=== PATIENT | female | born 1995 | race Caucasian/White ===

== ENCOUNTER 2019-05-18 21:37 | Emergency (ER) | payer OTHER, SELFPAY ==
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
[2019-05-18 21:58] VITALS: BP 146/97; PULSE 74; RESP 17; TEMP 36.6; O2SAT 100; BMI 39.8
[2019-05-18 23:12] VITALS: BP 150/94; PULSE 81; RESP 17; O2SAT 98
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
[2019-05-18 23:38] VITALS: BP 166/96; PULSE 84; RESP 18; O2SAT 100
== END 2019-05-18 23:39 | disposition home or self-care (01) ==
LOC: ER 05-19 00:39
PROVIDERS: Emergency Provider Nurse Practitioner Family; Family Provider Family Medicine; PCP Family Medicine
DX: S43.401A Unspecified sprain of right shoulder joint, initial encounter (principal); Y09 Assault by unspecified means; Y92.238 Other place in hospital as the place of occurrence of the external cause; Y99.0 Civilian activity done for income or pay
CPT/HCPCS: 73030; 99281; 99283

== ENCOUNTER 2019-11-07 23:31 | Emergency (ER) | payer OTHER, SELFPAY ==
--- NOTE | 2019-11-07 23:33 | XR_ITS ---
WS: [id number] RIGHT SHOULDER: 3 VIEW(S) TECHNIQUE: Internal and external rotation with Y view. HISTORY: fall COMPARISON: None available. No fracture or dislocation or soft tissue abnormality. Glenohumeral and AC joints are unremarkable. XR/XR shoulder RT min 2V* [id number] IMPRESSION: Normal RIGHT shoulder.
--- NOTE | 2019-11-07 23:33 | XR_ITS ---
WS: [id number] RIGHT ELBOW: 3 VIEW(S) TECHNIQUE: AP, oblique and lateral. HISTORY: fall COMPARISON: None available. No acute fractures or dislocation. Small osteophyte from the olecranon. No joint effusion. No soft tissue abnormality. XR/XR elbow RT min 3V* [id number] IMPRESSION: Normal RIGHT elbow.
[2019-11-08 00:12] VITALS: BP 136/81; PULSE 86; RESP 16; O2SAT 98; BMI 40.7
--- NOTE | 2019-11-08 00:24 | W.ED.FALL ---
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 and she fell on the floor striking her right elbow and straining her right shoulder complains about pain to her right shoulder presently MD complaint: fall Onset (ago): minute(s) Fall from: standing Fall witnessed: yes, by bystander Place fall occurred: work Loss of consciousness: None Symptoms prior to fall: none Context: tripped/slipped Location of injury - extremities: Right: shoulder and elbow Severity: mild Severity scale (1-10): 4 Quality: aching Associated symptoms-after fall: Reports no associated symptoms; Denies abdominal pain, chest pain or headache(s) Review of Systems Const: Denies: fever(s), chills or body aches Eyes: Denies: change in vision or blurry vision ENMT: Denies: throat pain or nasal congestion Card: Denies: chest pain or dyspnea on exertion Resp: Denies: dyspnea, productive cough or non-productive cough GI: Denies: abdominal pain, nausea or vomiting Musc: Reports: joint pain (Right shoulder and right elbow); Denies: extremity pain Skin/Breast: Denies: rash Neuro: Denies: headache(s) Psych: Denies: anxiety or depression Jeffery/Lymph: Denies: easy bruising PFSH ED PFSH: Family History Father Diabetes Social History Smoking and tobacco status: never smoked Alcohol intake: current Alcohol intake frequency: holidays/special occasions only 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[employer] [place] Physical Exam Const: COMMON NORMALS: no acute distress, average body habitus and patient oriented x3 HENMT: COMMON NORMALS: normocephalic HEAD & SCALP: normal to inspection and normocephalic FACE & SINUS: normal facial exam Eye: COMMON NORMALS: conjunctivae normal GENERAL EYE: appearance normal, both eyes and all related structures CONJUNCTIVA: Yes conjunctivae normal Neck/C-Spine: COMMON NORMALS: no JVD Chest: COMMONS NORMALS: normal inspection of the chest Resp: COMMON NORMALS: normal respiratory effort Cardio: COMMON NORMALS: no JVD GI: COMMON NORMALS: Normal to inspection, nondistended, normoactive bowel sounds present Extremity: COMMON NORMALS: normal to inspection and full ROM RIGHT UPPER EXTREMITY: Yes shoulder joint (Pain with range of motion does have full range of motion though no swelling noted distal neurovascular intact) and Yes elbow joint (Mild tenderness palpation no swelling bruising noted has full range of motion) Neuro: COMMON NORMALS: patient oriented x3 Course Vital Signs: Vital signs: Vital Signs Pulse Rate 86 11/08/19 00:12 Respiratory Rate 16 11/08/19 00:12 Blood Pressure 136/81 11/08/19 00:12 Pulse Oximetry 98 11/08/19 00:12 Discharge Plan Discharge Clinical Impression: Right shoulder strain Qualifiers: Encounter type: initial encounter Qualified Code(s): S46.911A - Strain of unspecified muscle, fascia and tendon at shoulder and upper arm level, right arm, initial encounter Condition: Stable Prescriptions: No Action NuvaRing 0.12-0.015 mg/24 hr Ring VAGINAL RF: 0 Tremfya 100 mg/mL Auto-Injector 100 mg SUBCUT RF: 0 ibuprofen 800 mg tablet 800 mg PO Q8H PRN (Reason: pain) Qty: 30 RF: 0 Discharge Orders: Discharge Order (Routine); Ordered 11/08/19 Ordered By: Alonso Del Rio Referrals: Christina Tirado MD [Primary Care Provider] - Discharge Diet: Usual diet Discharge Activity: Limit activity as instructed Patient Instructions: Rotator Cuff Injury (ED) Activity Restrictions/Additional Instructions: ice, rest , off rest of shift. follow up at [facility] work Coding Level of Care Code ED Dental Office Manager for Chapis Kennedy
== END 2019-11-08 00:35 | disposition home or self-care (01) ==
PROVIDERS: Emergency Provider Nurse Practitioner Family; PCP Family Medicine
DX: S46.911A Strain of unspecified muscle, fascia and tendon at shoulder and upper arm level, right arm, initial encounter (principal); W01.198A Fall on same level from slipping, tripping and stumbling with subsequent striking against other object, initial encounter
CPT/HCPCS: 12345; 73030; 73080; 99281; 99283

== ENCOUNTER 2019-11-21 09:25 | Emergency (ER) | payer OTHER, SELFPAY ==
[2019-11-21] VITALS (7 sets, daily range): BP systolic 128–171; BP diastolic 84–110; PULSE 88–118; RESP 16–26; TEMP 37.1–37.3; O2SAT 96–99; BMI 41.6
--- NOTE | 2019-11-21 09:55 | W.ED.SOB ---
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 She is on a biological for her psoriasis which leaves her in suppressed category. Yesterday she had symptoms that were suggestive of COVID she went to [facility] local doctors office and was tested. It will be several days before that test gets back. She started having a fever this morning she is tachycardic and short of breath. Her oxygen sats however are good. MD elicited complaint: shortness of breath and cough Onset (ago): day(s) Context: recent illness Timing: constant Severity: moderate Exacerbating factors: nothing Relieving factors: nothing Associated symptoms: Reports chest congestion, cough, dizziness, lightheadedness and nausea; Deny fever(s), orthopnea, palpitations, syncope or vomiting Treatment prior to arrival: none Review of Systems Const: Denies: fever(s), chills, body aches, change in appetite, fatigue or malaise ENMT: Denies: throat pain, ear or mastoid pain, nasal discharge or nasal congestion Card: Reports: lightheadedness; Denies: palpitations, syncope or orthopnea Resp: Reports: chest congestion GI: Reports: nausea; Denies: vomiting : Denies: flank pain, difficulty voiding, dysuria, urinary frequency or urinary urgency Skin/Breast: Denies: rash or pruritus Neuro: Reports: dizziness PFSH ED PFSH: Family History Father Diabetes Social History Smoking and tobacco status: never smoked Alcohol intake: current Alcohol intake frequency: holidays/special occasions only 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 Reproductive History: Date of last menstrual period: 11/14/19 Physical Exam Const: COMMON NORMALS: no acute distress GENERAL APPEARANCE: cooperative and comfortable ORIENTATION/CONSCIOUSNESS: Yes awake, Yes oriented to person, Yes oriented to place and Yes oriented to time HENMT: COMMON NORMALS: normocephalic and atraumatic HEAD & SCALP: normocephalic and atraumatic Eye: COMMON NORMALS: Equal, round and reactive pupils present, EOMs intact bilaterally, conjunctivae normal and no scleral icterus CONJUNCTIVA: Yes conjunctivae normal PUPIL: Yes Equal, round and reactive pupils present Neck/C-Spine: COMMON NORMALS: full ROM, no lymphadenopathy, supple and no JVD Lymph: LYMPHATIC: no lymphadenopathy noted and no lymphedema noted Resp: COMMON NORMALS: normal respiratory effort, No retractions and No use of accessory muscles AUSCULTATION: wheezes (Mild) expiratory wheezes and throughout Cardio: COMMON NORMALS: no JVD, regular rate, regular rhythm and No murmurs present (Cardio) RATE: regular rate RHYTHM: regular rhythm GI: COMMON NORMALS: Soft to palpation and No hepatosplenomegaly present AUSCULTATION: Yes normoactive bowel sounds PALPATION: Yes Soft to palpation, No Tenderness to palpation present (GI), No Guarding due to palpation present (GI) and Yes No hepatosplenomegaly present Extremity: COMMON NORMALS: normal to inspection, capillary refill normal, no clubbing, cyanosis or edema, no calf tenderness and no pedal edema Neuro: SENSORIUM/ORIENTATION: Yes oriented to person, Yes oriented to place and Yes oriented to time Skin: COMMON NORMALS: no rashes or lesions noted GENERAL SKIN EXAM: no rashes or lesions noted Course Vital Signs: Vital signs: Vital Signs Temperature 98.8 F 11/21/19 14:58 Pulse Rate 100 11/21/19 14:58 Respiratory Rate 18 11/21/19 14:58 Blood Pressure 128/88 11/21/19 14:58 Pulse Oximetry 96 11/21/19 14:58 MDM - SOB/Dyspnea MDM Narrative: Medical decision making narrative: Code engine is negative she has a outside swab pending it is recommended she remain in quarantine until the time she reported temp 103 at home her temps not been that high here sats have been good on room air will discharge home with albuterol she has any worsening problems return to the emergency room Lab Data: Labs: Lab Results 11/21/19 11/21/19 11/21/19 Range/Units 11:08 11:08 11:08 WBC 10.3 H (4.0-10.0) 10^3/ uL RBC 5.29 (4.1-5.3) 10^6/u L Hgb 12.8 (11.5-15.3) g/dL Hct 41.6 (37.0-47.0) % MCV 78.6 L (81-99) fL MCH 24.2 L (28.0-34.0) pg MCHC 30.8 (30.0-36.0) g/dL RDW 13.0 (12.1-15.1) % Plt Count 342 (130-400) 10^3/c mm MPV 10.5 H (7.4-10.4) fL Neut % (Auto) 80.5 % Lymph % (Auto) 9.9 % [place] % (Auto) 5.1 % Eos % (Auto) 3.5 % Baso % (Auto) 0.6 % Neut # (Auto) 8.29 H (1.8-7.7) 10^3/u L Lymph # (Auto) 1.0 (0.8-4.8) 10^3/u L [place] # (Auto) 0.5 (0.2-0.9) 10^3/u L Eos # (Auto) 0.4 (0.0-0.8) 10^3/u L Baso # (Auto) 0.1 (0.0-0.1) 10^3/u L Nucleated RBC % (a uto) 0 % Nucleated RBCs # 0.0 /100WBC Fibrinogen 490 (174-498) mg/dL D-Dimer 0.31 (0-0.59) ug/mIFE U Sodium 134 L (136-145) mmol/L Potassium 3.9 (3.5-5.1) mmol/L Chloride 103 (98-107) mmol/L Carbon Dioxide 21 L (22-29) mmol/L Anion Gap 13.9 (5-19) BUN 9 (6-20) mg/dL Creatinine 0.7 (0.5-0.9) mg/dL GFR Calculation 102.0 (90-130) mL/min Glucose 106 (65-115) mg/dL Calculated Osmolal ity 274 L (285-295) mOsm/k g Lactic Acid (0.5-2.2) mmol/L Calcium 8.7 (8.5-10.5) mg/dL Ferritin 24 (15-150) ng/mL Total Bilirubin 0.5 (0.15-1.2) mg/dL AST 17 (0-32) U/L ALT 21 (0-33) U/L Alkaline Phosphata se 108 H (35-105) IU/L Lactate Dehydrogen ase 200 (135-214) U/L C-Reactive Protein 21.1 H (0.0-4.9) mg/L Total Protein 7.7 (6.6-8.7) g/dL Albumin 4.2 (3.5-5.2) g/dL Globulin 3.5 (1.3-4.6) g/dL Procalcitonin 0.11 (0-0.5) ng/mL Influenza Type A A g (Negative) Influenza Type B A g (Negative) SARS-CoV-2 Ag (Rap id) (Negative) 11/21/19 11/21/19 11/21/19 Range/Units 11:08 11:12 11:12 WBC (4.0-10.0) 10^3/ uL RBC (4.1-5.3) 10^6/u L Hgb (11.5-15.3) g/dL Hct (37.0-47.0) % MCV (81-99) fL MCH (28.0-34.0) pg MCHC (30.0-36.0) g/dL RDW (12.1-15.1) % Plt Count (130-400) 10^3/c mm MPV (7.4-10.4) fL Neut % (Auto) % Lymph % (Auto) % [place] % (Auto) % Eos % (Auto) % Baso % (Auto) % Neut # (Auto) (1.8-7.7) 10^3/u L Lymph # (Auto) (0.8-4.8) 10^3/u L [place] # (Auto) (0.2-0.9) 10^3/u L Eos # (Auto) (0.0-0.8) 10^3/u L Baso # (Auto) (0.0-0.1) 10^3/u L Nucleated RBC % (a uto) % Nucleated RBCs # /100WBC Fibrinogen (174-498) mg/dL D-Dimer (0-0.59) ug/mIFE U Sodium (136-145) mmol/L Potassium (3.5-5.1) mmol/L Chloride (98-107) mmol/L Carbon Dioxide (22-29) mmol/L Anion Gap (5-19) BUN (6-20) mg/dL Creatinine (0.5-0.9) mg/dL GFR Calculation (90-130) mL/min Glucose (65-115) mg/dL Calculated Osmolal ity (285-295) mOsm/k g Lactic Acid 0.8 (0.5-2.2) mmol/L Calcium (8.5-10.5) mg/dL Ferritin (15-150) ng/mL Total Bilirubin (0.15-1.2) mg/dL AST (0-32) U/L ALT (0-33) U/L Alkaline Phosphata se (35-105) IU/L Lactate Dehydrogen ase (135-214) U/L C-Reactive Protein (0.0-4.9) mg/L Total Protein (6.6-8.7) g/dL Albumin (3.5-5.2) g/dL Globulin (1.3-4.6) g/dL Procalcitonin (0-0.5) ng/mL Influenza Type A A g Negative (Negative) Influenza Type B A g Negative (Negative) SARS-CoV-2 Ag (Rap id) Negative (Negative) Discharge Plan Discharge Patient Disposition: Home Clinical Impression: URI (upper respiratory infection), Suspected 2019-nCoV infection Condition: Stable Prescriptions: New albuterol sulfate 90 mcg/actuation HFA aerosol inhaler 2 inh INHALATION Q4H PRN (Reason: shortness of breath or wheezing) Qty: 18 RF: 0 No Action Tremfya 100 mg/mL Auto-Injector 100 mg SUBCUT Q60D RF: 0 ibuprofen 800 mg tablet 800 mg PO Q8H PRN (Reason: pain) Qty: 30 RF: 0 guaifenesin 200 mg/5 mL Liquid 1,600 mg PO Q6H PRN (Reason: Congestion) RF: 0 Discharge Orders: Discharge Order (Routine); Ordered 11/21/19 Ordered By: Sg Morataya Referrals: Christina Tirado MD [Primary Care Provider] - Discharge Diet: Usual diet Discharge Activity: Limit activity as instructed Activity Restrictions/Additional Instructions: Self quarantine until the results from your doctor's office nasal swab on COVID-19 never resulted. Tylenol or ibuprofen as needed for fever. Albuterol as needed for cough and shortness of breath. If symptoms worsen return to the emergency room Discharge Date/Time: 11/21/19 15:00 Coding Level of Care Code ED Electroneurodiagnostic Technician for Chapis Kennedy
--- NOTE | 2019-11-21 09:57 | XR_ITS ---
WS: [id number] PORTABLE CHEST HISTORY: Cough COMPARISON: None available. Lungs are clear and well expanded. No pleural effusion or pneumothorax. Cardiac size: Normal. Mediastinum/Aorta: Normal mediastinum. No osseous abnormality seen. XR/XR chest 1V portable [id number] IMPRESSION: Unremarkable portable chest.
--- NOTE | 2019-11-21 09:57 | ECG_ITS ---
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 Measurements Intervals [place] Rate: 91 P: 22 MA: 138 QRS: 49 QRSD: 93 T: 45 QT: 343 QTc: 423 Interpretive Statements SINUS RHYTHM No previous ECG available for comparison Electronically Signed On 11-21-2019 12:14:51 CDT by Travis Vaca M.D. [id number]
[2019-11-21] MEDS: sodium chloride 0.9% 500 ML 999 ML IV (11:16)
[2019-11-21 11:20] LABS: Basophils # 0.1 10^3/uL (0.0-0.1); Basophils % 0.6 %; Eosinophils # 0.4 10^3/uL (0.0-0.8); Eosinophils % 3.5 %; Hematocrit 41.6 % (37.0-47.0); Hemoglobin 12.8 g/dL (11.5-15.3); Lymphocytes % 9.9 %; Mean Corpuscular HGB Conc 30.8 g/dL (30.0-36.0); Mean Corpuscular Hemoglobin 24.2 pg (28.0-34.0); Mean Corpuscular Volume 78.6 fL (81-99); Mean Platelet Volume 10.5 fL (7.4-10.4); Monocytes # 0.5 10^3/uL (0.2-0.9); Monocytes % 5.1 %; Neutrophils # 8.29 10^3/uL (1.8-7.7); Neutrophils % 80.5 %; Nucleated Red Blood Cells % 0 %; Platelet Count 342 10^3/cmm (130-400); Red Blood Count 5.29 10^6/uL (4.1-5.3); White Blood Count 10.3 10^3/uL (4.0-10.0)
[2019-11-21 11:35] LABS: Fibrinogen 490 mg/dL (174-498)
[2019-11-21 11:39] LABS: D Dimer 0.31 ug/mIFEU (0-0.59); Lactic Sepsis W/Reflex 0.8 mmol/L (0.5-2.2)
[2019-11-21 11:49] LABS: Procalcitonin 0.11 ng/mL (0-0.5)
[2019-11-21 11:51] LABS: Influenza A by IFA Negative (Negative); Influenza B by IFA Negative (Negative); SARS Covid-2 Antigen Negative (Negative)
[2019-11-21 12:00] LABS: Alanine Aminotransferase 21 U/L (0-33); Albumin Level 4.2 g/dL (3.5-5.2); Alkaline Phosphatase 108 IU/L (35-105); Anion Gap 13.9 (5-19); Aspartate Amino Transferase 17 U/L (0-32); Blood Urea Nitrogen 9 mg/dL (6-20); C Reactive Protein 21.1 mg/L (0.0-4.9); Calcium 8.7 mg/dL (8.5-10.5); Carbon Dioxide 21 mmol/L (22-29); Chloride 103 mmol/L (98-107); Ferritin 24 ng/mL (15-150); Globulin 3.5 g/dL (1.3-4.6); Glucose 106 mg/dL (65-115); Lactate Dehydrogenase 200 U/L (135-214); Osmolality Calculated 274 mOsm/kg (285-295); Potassium 3.9 mmol/L (3.5-5.1); Sodium 134 mmol/L (136-145); Total Bilirubin 0.5 mg/dL (0.15-1.2); Total Protein 7.7 g/dL (6.6-8.7)
--- NOTE | 2019-11-21 12:16 | CT_ITS ---
WS: [id number] CT CHEST ANGIOGRAPHY WITH REFORMATS HISTORY: tachycardic and dyspnea TECHNIQUE: Contiguous axial images are obtained through the chest during arterial injection of intrav enous contrast. Images are reconstructed to evaluate the pulmonary arteries. MIP imaging also reviewe d. All CT scans at [facility] use at least one of these dose optimization techniques: aut omated exposure control; mA and/or kV adjustment per patient size (includes targeted exams where dose is matched to clinical indication); or iterative reconstruction. CONTRAST: Omnipaque 350; 95 mL IV. DLP: 574.65 mGy.cm COMPARISON: None available. Very good opacification of the pulmonary arteries. No pulmonary embolism. Pulmonary artery size is pr ominent 2.6 cm. No dissection or aneurysm. The caliber of the thoracic aorta and the upper abdominal aorta is small. Lungs are clear. No pericardial or pleural effusion. Mild LEFT ventricular hypertrophy. No RIGHT hear t strain. 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 The entire spleen is not imaged but does appear elongated measuring greater than 13 cm in length. Notified Sg Morataya DO at 11/21/2019 1:[address]/CT angio chest PE protcl [id number] IMPRESSION: 1. No pulmonary embolism. 2. Small caliber thoracic and abdominal aorta of uncertain etiology. 3. 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 4. Mild LEFT ventricular hypertrophy. 5. Splenomegaly.
[2019-11-21] MEDS: iohexol 350 mg/mL 100 mL Btl IV (13:26)
[2020-01-06 01:52] LABS: Hepatitis B Surface AB 3.5 (0-8.5); Hepatitis B Surface Antigen Non-Reactive (Nonreactive); Hepatitis C Virus Antibody Non-Reactive (Nonreactive)
[2020-01-06 01:58] LABS: HIV 1 & 2 Antibody Non-Reactive (Non-Reactiv); HIV 1 & 2 Antigen Non-Reactive (Non-Reactiv)
== END 2019-11-21 15:00 | disposition home or self-care (01) ==
PROVIDERS: Emergency Provider Family Medicine; PCP Family Medicine
DX: J06.9 Acute upper respiratory infection, unspecified (principal)
CPT/HCPCS: 12345; 71045; 71275; 80053; 82728; 83605; 83615; 84145; 85025; 85378; 85384; 86140; 87040; 87070; 87205; 87426; 87804; 93005; 93010; 99284; J7040; Q9967

== ENCOUNTER 2020-01-06 06:00 | Outpatient (CLI) | payer OTHER, SELFPAY | END 2020-01-06 06:01 | disposition home or self-care (01) | LOC: LAB 01-18 10:48 | PROVIDERS: PCP Family Medicine; Visit Provider Family Medicine | DX: Z01.89 Encounter for other specified special examinations (principal) | CPT/HCPCS: 86706; 86803; 87340; 87806 ==

== ENCOUNTER 2020-01-09 10:53 | Outpatient (CLI) | payer OTHER, SELFPAY ==
--- NOTE | 2020-01-09 11:00 | USCV_ITS ---
Laya Cortez Age: 24 Gender: F : 1995 Exam Date: 01/09/2020 11:18 Ordering Phys: Cassie Oliveros MD ([email or web address]) Technologist: Sydney Chang Exam Location: [facility] [place] Indication: PULMONARY STENOSIS BP: 118 / 69 HR: 82 Rhythm: Sinus Technical Quality: Adequate MEASUREMENTS (Male / Female) Normal Values 2D ECHO LV Diastolic Diameter PLAX 2.9 cm 4.2 - 5.9 / 3.9 - 5.3 cm LV Systolic Diameter PLAX 1.8 cm LV Chamber Size 2.4 cm IVS Diastolic Thickness 1.3 cm 0.6 - 1.0 / 0.6 - 0.9 cm IVS Systolic Thickness 1.5 cm LVPW Diastolic Thickness 1.6 cm 0.6 - 1.0 / 0.6 - 0.9 cm LVPW Systolic Thickness 1.9 cm RV Chamber Size 1.8 cm LVOT Diameter 2.0 cm LV Ejection Fraction 2D Teich 70.4 % LV Ejection Fraction MOD 2C 63.2 % LV Ejection Fraction 2C AL 63.9 % LA Diameter 3.6 cm LA Width 2.8 cm LA Height 2.9 cm RA Width 2.2 cm RA Height 2.9 cm Aorta at Sinotubular Diameter 2.2 cm M-MODE LV Diastolic Diameter MM 2.7 cm 4.2 - 5.9 / 3.9 - 5.3 cm LV Systolic Diameter MM 1.4 cm LV Ejection Fraction MM Teich 81.7 % IVS Diastolic Thickness MM 0.7 cm 0.6 - 1.0 / 0.6 - 0.9 cm IVS Systolic Thickness MM 1.1 cm LVPW Diastolic Thickness MM 1.3 cm 0.6 - 1.0 / 0.6 - 0.9 cm LVPW Systolic Thickness MM 1.2 cm Aortic Annulus Diameter 2.9 cm LA Ao Ratio MM 1.3 MV E Point Septal Separation 0.2 cm DOPPLER AV Peak Velocity 123.0 cm/s LVOT Peak Velocity 97.0 cm/s AV Area Cont Eq vti 2.8 cm squared AV Area Cont Eq pk 2.5 cm squared MV Area PHT 4.8 cm squared Mitral E to A Ratio 1.3 MV E' Velocity 84.0 cm/s Mitral E to MV E' Ratio 5.3 Mitral E to LV E' Lateral Ratio 5.5 Mitral E to LV E' Septal Ratio 5.0 TR Peak Velocity 196.0 cm/s TR Peak Gradient 15.3 mmHg TV Peak E Velocity 71.0 cm/s Right Atrial Pressure 3.0 mmHg Pulmonary Artery Systolic Pressu 18.4 mmHg PV Peak Velocity 119.0 cm/s QpQs Shunt Ratio 2.7 RV Acceleration Time 0.1 s RV Ejection Time 0.5 s RV AcT/ET 0.2 FINDINGS Left Ventricle Normal left ventricular size, systolic function and wall thickness, with no regional wall motion abnormalities. Left ventricular ejection fraction is estimated at 65 %. Normal diastolic function. Right Ventricle Normal right ventricular size and systolic function, RVSP 18.4 mmHg. Right Atrium Normal right atrial size. Left Atrium Normal left atrial size. Mitral Valve Structurally normal mitral valve. No mitral valve stenosis. No mitral valve regurgitation. Aortic Valve Structurally normal trileaflet aortic valve. No aortic valve stenosis. No aortic valve regurgitation. Tricuspid Valve Structurally normal tricuspid valve. No tricuspid valve stenosis. No significant tricuspid valve regurgitation. Pulmonic Valve Pulmonic valve not well visualized. No pulmonary valve stenosis. Trace pulmonary valve regurgitation. Pericardium No pericardial effusion. Aorta Small sized aortic root (26 mm) and proximal ascending aorta (24 mm). Indexed aortic root (Sov) is 1.3 cm/m2 (1.6-2.0) and proximal ascending aorta 1.2 cm2/m2 (1.3-1.9). Z score of sinus of valsalva -1.92, ST junction of -1.10 and ascending aorta - 0.71. CONCLUSIONS 1. Normal left ventricular size, systolic function and wall thickness, with no regional wall motion abnormalities. Left ventricular ejection fraction is estimated at 65 %. Normal diastolic function. 2. Normal right ventricular size and systolic function, RVSP 18.4 mmHg. 3. No significant valvular abnormality. 4. No prior similar studies to compare. Cassie Oliveros MD (Electronically Signed) Final Date: 09 January 2020 17:12 Amended: 14 January 2020 10:36 C
== END 2020-01-09 10:54 | disposition home or self-care (01) ==
LOC: US 10:54
PROVIDERS: PCP Family Medicine; Visit Provider Internal Medicine Cardiovascular Disease
DX: R06.02 Shortness of breath (principal); I37.0 Nonrheumatic pulmonary valve stenosis
CPT/HCPCS: 93306

== ENCOUNTER 2020-01-25 20:15 | Emergency (ER) | payer OTHER, SELFPAY ==
--- NOTE | 2020-01-25 20:22 | XRR_ITS ---
PROCEDURE INFORMATION: Exam: XR Chest, 1 View Exam date and time: 01/25/2020 8:23 PM Age: 24 years old Clinical indication: Other: Weakness TECHNIQUE: Imaging protocol: XR of the chest Views: 1 view. COMPARISON: CR XR chest 1V portable [id number] 11/21/2019 10:19 AM FINDINGS: Lungs: Unremarkable. No consolidation. Pleural space: Unremarkable. No pleural effusion. No pneumothorax. Heart/Mediastinum: Unremarkable. No cardiomegaly. Bones/joints: Unremarkable. XR/XR chest 1V portable [id number] IMPRESSION: No acute findings.
--- NOTE | 2020-01-25 20:22 | ECG_ITS ---
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 Measurements Intervals [place] Rate: 61 P: 57 [place]: 161 QRS: 56 QRSD: 92 T: 47 QT: 398 QTc: 402 Interpretive Statements SINUS RHYTHM LOW QRS VOLTAGE IN PRECORDIAL LEADS [QRS DEFLECTION < 1.0 mV IN CHEST LEADS] Compared to ECG 11/21/2019 11:36:51 Low QRS voltage now present Electronically Signed On 01-26-2020 18:00:49 CDT by Cassie Oliveros M.D. [id number]
[2020-01-25 20:24] VITALS: BP 112/80; PULSE 65; RESP 17; TEMP 36.8; O2SAT 99; BMI 41.6
[2020-01-25 20:53] LABS: Basophils # 0.1 10^3/uL (0.0-0.1); Basophils % 0.8 %; Eosinophils # 0.3 10^3/uL (0.0-0.8); Eosinophils % 2.8 %; Hematocrit 41.6 % (37.0-47.0); Hemoglobin 13.1 g/dL (11.5-15.3); Lymphocytes # 2.4 10^3/uL (0.8-4.8); Lymphocytes % 26.1 %; Mean Corpuscular HGB Conc 31.5 g/dL (30.0-36.0); Mean Corpuscular Hemoglobin 24.3 pg (28.0-34.0); Mean Corpuscular Volume 77.2 fL (81-99); Mean Platelet Volume 9.9 fL (7.4-10.4); Monocytes # 0.5 10^3/uL (0.2-0.9); Monocytes % 5.3 %; Neutrophils # 5.92 10^3/uL (1.8-7.7); Neutrophils % 64.8 %; Nucleated Red Blood Cells % 0 %; Platelet Count 422 10^3/cmm (130-400); Red Blood Count 5.39 10^6/uL (4.1-5.3); Red Cell Distribution Width 13.2 % (12.1-15.1); White Blood Count 9.1 10^3/uL (4.0-10.0)
[2020-01-25 21:11] LABS: Alanine Aminotransferase 12 U/L (0-33); Albumin Level 4.3 g/dL (3.5-5.2); Alkaline Phosphatase 106 IU/L (35-105); Anion Gap 14.3 (5-19); Aspartate Amino Transferase 13 U/L (0-32); Blood Urea Nitrogen 8 mg/dL (6-20); Calcium 9.5 mg/dL (8.5-10.5); Carbon Dioxide 22 mmol/L (22-29); Chloride 105 mmol/L (98-107); Glomerular Filtration Rate 87.4 mL/min (90-130); Glucose 104 mg/dL (65-115); HCG, Serum Qual Negative (Negative); Magnesium 2.1 mg/dL (1.7-2.3); Osmolality Calculated 285 mOsm/kg (285-295); Potassium 3.3 mmol/L (3.5-5.1); Sodium 138 mmol/L (136-145); Total Bilirubin 0.5 mg/dL (0.15-1.2); Total Protein 7.3 g/dL (6.6-8.7)
[2020-01-25] MEDS: sodium chloride 0.9% 1,000 ML 999 ML IV ×2 (21:41→23:54)
[2020-01-25] MEDS: ondansetron 2 mg/ML SDV 2 mL 4 MG IVP (22:07)
--- NOTE | 2020-01-25 22:46 | ED_ITS ---
HPI - Dizziness General: Chief Complaint: Dizziness Stated Complaint: dizzy weakness Time Seen by Provider: 01/25/20 20:19 Source: patient Mode of arrival: ambulatory Limitations: no limitations History of Present Illness: HPI Narrative: Laya is a nice 24-year-old female who states that today's been feel lightheaded and weak. She on her menstrual cycle now and states that she bled heavily which she normally does with her polycystic ovarian disease. She did not pass out or nearly pass out. She denies any chest pain or palpitations. She denies any fevers, chills, focal w eakness only global weakness. Patient states the symptoms have been steady all day and somewhat worse tonight. She is had similar symptoms in the past. She otherwise denies any other complaints or concerns. Associated symptoms: Denies change in hearing, chest pain, chills, diaphoresis, ear discharge, headache(s), malaise, nausea, palpitations, syncope or vomiting Associated neuro symptoms: Deny confusion or numbness in extremities Review of Systems Const: Denies: fever(s), chills, body aches, fatigue, malaise or diaphoresis Eyes: Denies: change in vision, blurry vision, photophobia, eye discomfort, eye discharge, eye redness or yellow eyes ENMT: Denies: throat pain, odynophagia, hoarseness, swelling of lips/tongue, ear or mastoid pain, ear discharge, change in hearing or nasal discharge Card: Denies: chest pain, palpitations, irregular heart rhythm, edema, lightheadedness, syncope, pre-syncope, dyspnea on exertion or orthopnea Resp: Denies: dyspnea, productive cough, non-productive cough, wheezing, hemoptysis or chest congestion GI: Denies: abdominal pain, nausea, vomiting, hematemesis, coffee ground emesis, heartburn, diarrhea, constipation, GI cramping, hematochezia or melena : Denies: flank pain, dysuria, urinary frequency, urinary urgency or hematuria Musc: Denies: neck pain, back pain, extremity pain, extremity swelling, joint pain, joint swelling, joint redness, joint warmth or joint stiffness Skin/Breast: Denies: rash, pruritus, erythema, skin pain or skin tenderness Neuro: Reports: dizziness; Denies: headache(s), numbness in extremities, weakness in extremities, sensory changes, lack of coordination, difficulty walking, vertigo, confusion, Slurred speech present or seizure-like activity Jeffery/Lymph: Denies: easy bruising, easy bleeding, petechiae, purpura or enlarged lymph nodes All/Imm: Denies: urticaria, throat swelling, tongue swelling, facial swelling or acute wheezing PFSH ED PFSH: Medical History Psoriasis Family History Father Diabetes Other Alzheimer disease Cancer Renal failure Social History Smoking and tobacco status: never smoked Alcohol intake: current Alcohol intake frequency: holidays/special occasions only 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[place] Female Reproductive History: Date of last menstrual period: 01/25/20 Physical Exam Const: COMMON NORMALS: no acute distress, patient oriented x3, no limitations and alert GENERAL APPEARANCE: cooperative HENMT: COMMON NORMALS: normocephalic, atraumatic, external ears normal, EAC's normal and Normal external nose present HEAD & SCALP: normal to inspection, normocephalic and atraumatic FACE & SINUS: normal facial exam and face symmetric NOSE: Normal external nose present and Normal nares present EXTERNAL EAR: Yes external ears normal EXTERNAL AUDITORY CANAL: EAC's normal MOUTH: Normal oral and palatal mucosa present, lip normal and tongue normal Eye: COMMON NORMALS: Equal, round and reactive pupils present and conjunctivae normal GENERAL EYE: appearance normal, both eyes and all related structures ALIGNMENT: Yes alignment normal PERIORBITAL: periorbital findings normal EYELID: eyelids normal CONJUNCTIVA: Yes conjunctivae normal SCLERA: sclerae normal PUPIL: Yes Equal, round and reactive pupils present Neck/C-Spine: COMMON NORMALS: full ROM, no lymphadenopathy, supple, no meningeal signs and no JVD GENERAL: Yes normal visual inspection and Yes trachea midline Chest: COMMONS NORMALS: normal inspection of the chest and normal palpation of entire chest wall Resp: COMMON NORMALS: normal respiratory effort, No retractions, No use of accessory muscles and clear to auscultation bilaterally EFFORT & INSPECTION: Yes able to speak in complete sentences and Yes symmetric chest movement AUSCULTATION: clear to auscultation bilaterally, no crackles, no rales, no rhonc hi and no wheezes Cardio: COMMON NORMALS: no JVD, regular rate, regular rhythm, S1 normal heart sound present and S2 normal heart sound present RATE: regular rate RHYTHM: regular rhythm HEART SOUNDS: S1 normal heart sound present, S2 normal heart sound present, no click, no gallops, no murmurs and no rubs GI: COMMON NORMALS: Soft to palpation and No hepatosplenomegaly present PALPATION: Yes Soft to palpation, No Tenderness to palpation present (GI), No Guarding due to palpation present (GI), No Rigid due to palpation, Yes No hepatosplenomegaly present, No Hernia present, No Palpable mass present and No Pulsatile mass present : COMMON NORMALS: Yes no CVA tenderness BLADDER/KIDNEY EXAM: Yes no CVA tenderness EXTERNAL FEMALE EXAM: No Hernia present Back/Pelvis: COMMON NORMALS: no CVA tenderness, thoracic and lumbar spine normal to inspection, no thoracic nor lumbar tenderness and thoraco-lumbar ROM normal Extremity: COMMON NORMALS: normal to inspection, full ROM, capillary refill normal, no joint enlargement, no clubbing, cyanosis or edema and no calf tenderness Neuro: COMMON NORMALS: patient oriented x3, CN's II-XII intact bilaterally, moves all extremities, no focal motor deficits and no sensory deficits noted SENSORIUM/ORIENTATION: Yes alert MENINGEAL SIGNS: Yes no meningeal signs SPEECH: speech normal Psych: COMMON NORMALS: mental status grossly normal, Normal thought process present, cooperative, normal affect, speech normal and activity/motor behavior normal SPEECH: Yes normal speech THOUGHT PROCESS: Normal thought process present Skin: COMMON NORMALS: no rashes or lesions noted, turgor normal, no jaundice, no petechiae and no mottling GENERAL SKIN EXAM: no rashes or lesions noted and turgor normal Course ED course: 2250 -patient able to ambulate the halls without difficulty. Vital Signs: Vital signs: Vital Signs Temperature 98.3 F 01/25/20 20:24 Pulse Rate 87 01/26/20 00:12 Respiratory Rate 16 01/26/20 00:12 Blood Pressure 132/76 01/26/20 00:12 Pulse Oximetry 99 01/26/20 00:12 MDM - Dizziness MDM Narrative: Medical decision making narrative: Laya is a nice 24-year-old female who states that she is been feeling lightheaded and dizzy all day. She thought this was due to her vaginal bleeding and she is due for her menstrual cycle. She denies any back pain or lower abdominal pain or other vaginal discharge. She has declined a pelvic exam here. She states this is her normal vaginal bleeding but she just felt weak today. Patient is not orthostatic and not anemic. Her urine was contaminated and she declines a repeat catheterized urine so I will go ahead and treat her for a possible UTI. She has no chest pain, palpitations, focal logic deficits or any other acute abnormality. Patient wants to go home at this time but wants to rest through the weekend. I have informed her of this could be some other disease process that is early in its course and if her symptoms change she will need to return here for recheck. She understands this and agrees to follow-up as directed or return here if needed. Lab Data: Attestation: I reviewed the patient's lab results. Labs: Lab Results 01/25/20 01/25/20 01/25/20 Range/Units 20:47 20:47 20:47 WBC 9.1 (4.0-10.0) 10^3/ uL RBC 5.39 H (4.1-5.3) 10^6/u L Hgb 13.1 (11.5-15.3) g/dL Hct 41.6 (37.0-47.0) % MCV 77.2 L (81-99) fL MCH 24.3 L (28.0-34.0) pg MCHC 31.5 (30.0-36.0) g/dL RDW 13.2 (12.1-15.1) % Plt Count 422 H (130-400) 10^3/c mm MPV 9.9 (7.4-10.4) fL Neut % (Auto) 64.8 % Lymph % (Auto) 26.1 % Placer % (Auto) 5.3 % Eos % (Auto) 2.8 % Baso % (Auto) 0.8 % Neut # (Auto) 5.92 (1.8-7.7) 10^3/u L Lymph # (Auto) 2.4 (0.8-4.8) 10^3/u L Placer # (Auto) 0.5 (0.2-0.9) 10^3/u L Eos # (Auto) 0.3 (0.0-0.8) 10^3/u L Baso # (Auto) 0.1 (0.0-0.1) 10^3/u L Nucleated RBC % (a uto) 0 % Nucleated RBCs # 0.0 /100WBC Sodium 138 (136-145) mmol/L Potassium 3.3 L (3.5-5.1) mmol/L Chloride 105 (98-107) mmol/L Carbon Dioxide 22 (22-29) mmol/L Anion Gap 14.3 (5-19) BUN 8 (6-20) mg/dL Creatinine 0.8 (0.5-0.9) mg/dL GFR Calculation 87.4 L (90-130) mL/min Glucose 104 (65-115) mg/dL Calculated Osmolal ity 285 (285-295) mOsm/k g Calcium 9.5 (8.5-10.5) mg/dL Magnesium 2.1 (1.7-2.3) mg/dL Total Bilirubin 0.5 (0.15-1.2) mg/dL AST 13 (0-32) U/L ALT 12 (0-33) U/L Alkaline Phosphata se 106 H (35-105) IU/L Total Protein 7.3 (6.6-8.7) g/dL Albumin 4.3 (3.5-5.2) g/dL Globulin 3.0 (1.3-4.6) g/dL HCG, Qual Negative (Negative) Urine Color (Yellow) Urine Appearance (CLEAR) Urine pH (5-7) Ur Specific Gravit y (1.005-1.030) Urine Protein (Negative) Urine Glucose (UA) (Normal) Urine Ketones (Negative) Urine Blood (Negative) Urine Nitrate (Negative) Urine Bilirubin (Negative) Urine Urobilinogen (Negative) mg/dL Ur Leukocyte Morena ase (Negative) Urine RBC (0-2) /hpf Urine WBC (0-5) /hpf Ur Squamous Epith Cells (0-5) /hpf Amorphous Sediment Urine Bacteria (NONE) /hpf 01/25/20 Range/Units 23:23 WBC (4.0-10.0) 10^3/ uL RBC (4.1-5.3) 10^6/u L Hgb (11.5-15.3) g/dL Hct (37.0-47.0) % MCV (81-99) fL MCH (28.0-34.0) pg MCHC (30.0-36.0) g/dL RDW (12.1-15.1) % Plt Count (130-400) 10^3/c mm MPV (7.4-10.4) fL Neut % (Auto) % Lymph % (Auto) % Placer % (Auto) % Eos % (Auto) % Baso % (Auto) % Neut # (Auto) (1.8-7.7) 10^3/u L Lymph # (Auto) (0.8-4.8) 10^3/u L Placer # (Auto) (0.2-0.9) 10^3/u L Eos # (Auto) (0.0-0.8) 10^3/u L Baso # (Auto) (0.0-0.1) 10^3/u L Nucleated RBC % (a uto) % Nucleated RBCs # /100WBC Sodium (136-145) mmol/L Potassium (3.5-5.1) mmol/L Chloride (98-107) mmol/L Carbon Dioxide (22-29) mmol/L Anion Gap (5-19) BUN (6-20) mg/dL Creatinine (0.5-0.9) mg/dL GFR Calculation (90-130) mL/min Glucose (65-115) mg/dL Calculated Osmolal ity (285-295) mOsm/k g Calcium (8.5-10.5) mg/dL Magnesium (1.7-2.3) mg/dL Total Bilirubin (0.15-1.2) mg/dL AST (0-32) U/L ALT (0-33) U/L Alkaline Phosphata se (35-105) IU/L Total Protein (6.6-8.7) g/dL Albumin (3.5-5.2) g/dL Globulin (1.3-4.6) g/dL HCG, Qual (Negative) Urine Color Red (Yellow) Urine Appearance Cloudy (CLEAR) Urine pH 5 (5-7) Ur Specific Gravit y 1.020 (1.005-1.030) Urine Protein 3+ H (Negative) Urine Glucose (UA) Norm (Normal) Urine Ketones 1+ H (Negative) Urine Blood 3+ H (Negative) Urine Nitrate Negative (Negative) Urine Bilirubin Neg (Negative) Urine Urobilinogen 1 H (Negative) mg/dL Ur Leukocyte Morena ase Trace H (Negative) Urine RBC Too numerous to c nt H (0-2) /hpf Urine WBC 10-15 H (0-5) /hpf Ur Squamous Epith Cells 0-4 H (0-5) /hpf Amorphous Sediment Not Reportable Urine Bacteria Trace (NONE) /hpf EKG Data^: EKG 1: Attestation: I personally reviewed and interpreted this EKG as follows: EKG interpretation date: 01/25/20 EKG interpretation time: 20:44 Interpretation: Normal sinus rhythm at 61 beats a minute, no acute ST or T wave changes. Discharge Plan Discharge Patient Disposition: Home Clinical Impression: Generalized weakness UTI (urinary tract infection) Qualifiers: Urinary tract infection type: site unspecified Hematuria presence: with hematuria Qualified Code(s): N39.0 - Urinary tract infection, site not specified Condition: Stable Prescriptions: New cefdinir 300 mg capsule 300 mg PO Q12H 10 Days Qty: 20 RF: 0 No Action Tremfya 100 mg/mL Auto-Injector 100 mg SUBCUT Q60D RF: 0 ibuprofen 800 mg tablet 800 mg PO Q8H PRN (Reason: pain) Qty: 30 RF: 0 albuterol sulfate 90 mcg/actuation HFA aerosol inhaler 2 inh INHALATION Q4H PRN (Reason: shortness of breath or wheezing) Qty: 18 RF: 0 Discharge Orders: Discharge Order (Routine); Ordered 01/25/20 Ordered By: Lillian More Referrals: Christina Tirado MD [Primary Care Provider] - 1-3 days Discharge Diet: Advance as tolerated Discharge Activity: Increase activity as tolerated Patient Instructions: Urinary Tract Infection in Women (ED), Weakness (ED) Activity Restrictions/Additional Instructions: Please return to the ER immediately for any of the signs or symptoms listed on your discharge instruction sheets, worsening/changing of your symptoms, you are not getting better as quickly as expected, or for ANY other cause or concerns. Return to the ER for fever, you develop abdominal pain, increased weakness, heavier vaginal bleeding, or for any other cause for concern. Stand Alone Forms: Work/School Release Discharge Date/Time: 01/26/20 00:22 Coding Level of Care Code ED Instructional Consultant for Chg Fwd Exam Comprehensive
[2020-01-25 22:52] VITALS: BP 114/87; BP 119/72; BP 125/75; PULSE 71; PULSE 82; PULSE 83
[2020-01-25] MEDS: potassium chloride oral liq 20 mEq/15 mL UDC 40 MEQ PO (23:08)
[2020-01-25 23:09] VITALS: BP 120/79; PULSE 88; RESP 18; O2SAT 100
[2020-01-25 23:48] LABS: Urine Appearance Cloudy (CLEAR); Urine Color Red (Yellow)
[2020-01-25 23:52] LABS: Blood Urine 3+ (Negative); Glucose Urine UA Norm (Normal); Ketones Urine 1+ (Negative); Nitrate Urine Negative (Negative); Protein Urine 3+ (Negative); pH Urine 5 (5-7)
[2020-01-25 23:53] LABS: Add Urine Microscopic? YES; Bilirubin Urine Neg (Negative); Leukocyte Esterase Urine Trace (Negative); Urobilinogen Urine 1 mg/dL (Negative)
[2020-01-25 23:55] LABS: RBC Urine TOO NUMEROUS TO CNT /hpf (0-2)
[2020-01-25 23:56] LABS: Add Urine Culture? No; Bacteria Urine TRACE /hpf; Squamous Epithelial Cell Urine 0-4 /hpf (0-5)
[2020-01-26 00:12] VITALS: BP 132/76; PULSE 87; RESP 16; O2SAT 99
== END 2020-01-26 00:22 | disposition home or self-care (01) ==
PROVIDERS: Emergency Provider Emergency Medicine; PCP Family Medicine
DX: N39.0 Urinary tract infection, site not specified (principal); R53.1 Weakness
CPT/HCPCS: 12345; 71045; 80053; 81001; 83735; 84703; 85025; 93005; 96361; 96374; 99284; J2405; J7030

== ENCOUNTER 2020-05-16 20:32 | Outpatient (CLI) | payer OTHER, SELFPAY ==
[2020-05-16 20:59] LABS: Basophils # 0.1 10^3/uL (0.0-0.1); Basophils % 0.9 %; Eosinophils # 0.4 10^3/uL (0.0-0.8); Eosinophils % 2.9 %; Hematocrit 40.7 % (37.0-47.0); Hemoglobin 12.4 g/dL (11.5-15.3); Lymphocytes # 2.7 10^3/uL (0.8-4.8); Lymphocytes % 22.3 %; Mean Corpuscular HGB Conc 30.5 g/dL (30.0-36.0); Mean Corpuscular Hemoglobin 23.5 pg (28.0-34.0); Mean Corpuscular Volume 77.2 fL (81-99); Monocytes # 0.6 10^3/uL (0.2-0.9); Monocytes % 4.9 %; Neutrophils # 8.11 10^3/uL (1.8-7.7); Neutrophils % 68.4 %; Nucleated Red Blood Cells % 0 %; Platelet Count 416 10^3/cmm (130-400); Red Blood Count 5.27 10^6/uL (4.1-5.3); Red Cell Distribution Width 13.5 % (12.1-15.1); White Blood Count 11.9 10^3/uL (4.0-10.0)
[2020-05-16 21:13] LABS: Alanine Aminotransferase 14 U/L (0-33); Albumin Level 4.3 g/dL (3.5-5.2); Alkaline Phosphatase 120 IU/L (35-105); Anion Gap 14.4 (5-19); Aspartate Amino Transferase 13 U/L (0-32); Blood Urea Nitrogen 7 mg/dL (6-20); Calcium 9.8 mg/dL (8.5-10.5); Carbon Dioxide 25 mmol/L (22-29); Chloride 104 mmol/L (98-107); Globulin 2.6 g/dL (1.3-4.6); Glomerular Filtration Rate 101.1 mL/min (90-130); Glucose 86 mg/dL (65-115); Magnesium 2.3 mg/dL (1.7-2.3); Osmolality Calculated 285 mOsm/kg (285-295); Potassium 4.4 mmol/L (3.5-5.1); Sodium 139 mmol/L (136-145); Total Bilirubin 0.3 mg/dL (0.15-1.2); Total Protein 6.9 g/dL (6.6-8.7)
== END 2020-05-16 20:33 | disposition home or self-care (01) ==
LOC: LAB 20:35
PROVIDERS: PCP Family Medicine; Visit Provider Emergency Medicine
DX: R42 Dizziness and giddiness (principal)
CPT/HCPCS: 80053; 83735; 85025

== ENCOUNTER 2021-01-17 10:36 | Emergency (ER) | payer BC, SELFPAY ==
[2021-01-17 10:43] VITALS: BP 158/103; PULSE 126; RESP 20; TEMP 36.9; O2SAT 95; BMI 45.1
--- NOTE | 2021-01-17 10:57 | XRR_ITS ---
PROCEDURE INFORMATION: Exam: XR Chest Exam date and time: 01/17/2021 10:57 AM Age: 25 years old Clinical indication: Other: Increase heart rate; Additional info: Chest heaviness TECHNIQUE: Imaging protocol: XR of the chest. Views: 1 view. COMPARISON: CR XR chest 1V portable [id number] 01/25/2020 8:19 PM FINDINGS: Lungs: Unremarkable. No consolidation. Pleural spaces: Unremarkable. No pleural effusion. No pneumothorax. Heart/Mediastinum: Unremarkable. No cardiomegaly. Bones/joints: Minimal dextroscoliosis. XR/XR chest 1V portable [id number] IMPRESSION: No acute findings.
--- NOTE | 2021-01-17 10:58 | ECG_ITS ---
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1995 Requested By: Rodney Barron Order Number: [id number] Oliver MD: DAVID KINSEY Measurements Intervals [place] Rate: 110 P: 45 [place]: 141 QRS: 42 QRSD: 76 T: 57 QT: 325 QTc: 441 Interpretive Statements SINUS TACHYCARDIA POSSIBLE LEFT ATRIAL ENLARGEMENT [-0.1mV P-WAVE IN V1/V2] LOW QRS VOLTAGE IN PRECORDIAL LEADS [QRS DEFLECTION < 1.0 mV IN CHEST LEADS] ABNORMAL RHYTHM ECG Compared to ECG 01/25/2020 20:44:16 Sinus rhythm no longer present Electronically Signed On 01-17-2021 18:22:57 CDT by DAVID KINSEY [id number]
--- NOTE | 2021-01-17 10:59 | W.ED.GENADLT ---
HPI - General Adult General: Chief complaint: General Medical Stated complaint: Irregular HR & BP Time Seen by Provider: 01/17/21 10:38 History of Present Illness: HPI narrative: Patient is a 25-year-old female comes to the ED with palpitations. Patient was recently hospitalized at [place] for anxiety and released yesterday. Patient says that last night she started developing some palpitations and chest heaviness. Patient was at rest when symptoms started. She tried taking some of her hydroxyzine last night and she was able to fall asleep. This morning she woke up with the same symptoms. Denies any shortness of breath, bladder or bowel symptoms. Patient says she has a nexaplanon implant for control. denies any current SI. Associated symptoms: Reports chest pain (chest heaviness) and palpitations; Deny dyspnea, headache(s), nausea, rash or vomiting Review of Systems Const: Denies: fever(s), chills or fatigue Eyes: Denies: change in vision or eye discomfort ENMT: Denies: throat pain, odynophagia, nasal discharge or nasal congestion Card: Reports: chest pain (chest heaviness) and palpitations; Denies: edema, swelling of feet/ankles, dyspnea on exertion or orthopnea Resp: Denies: dyspnea, productive cough or non-productive cough GI: Denies: abdominal pain, nausea, vomiting, diarrhea, constipation or hematochezia : Denies: flank pain, dysuria or hematuria Musc: Reports: extremity swelling (Bilateral lower extremity edema.); Denies: neck pain or back pain Skin/Breast: Denies: rash or new lesions Neuro: Denies: headache(s), numbness in extremities or weakness in extremities Psych: Reports: anxiety; Denies: suicidal ideation [facility] ED PFSH: Medical History Psoriasis Family History Father Diabetes Other Alzheimer disease Cancer Renal failure Social History Smoking and tobacco status: never smoked Alcohol intake: current Alcohol intake frequency: holidays/special occasions only 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 Reproductive History: Date of last menstrual period: 01/25/20 Physical Exam Const: COMMON NORMALS: no acute distress, patient oriented x3 and alert GENERAL APPEARANCE: cooperative and comfortable HENMT: COMMON NORMALS: normocephalic HEAD & SCALP: normocephalic MOUTH: Normal oral and palatal mucosa present THROAT: posterior oropharynx normal and uvula midline Eye: COMMON NORMALS: Equal, round and reactive pupils present PUPIL: Yes Equal, round and reactive pupils present Neck/C-Spine: COMMON NORMALS: supple GENERAL: Yes normal visual inspection Resp: COMMON NORMALS: normal respiratory effort, No retractions, No use of accessory muscles and clear to auscultation bilaterally AUSCULTATION: clear to auscultation bilaterally Cardio: COMMON NORMALS: regular rhythm, S1 normal heart sound present, S2 normal heart sound present, No gallops present (Cardio), No clicks present (Cardio), No murmurs present (Cardio) and Peripheral pulses 2+ throughout RATE: tachycardic RHYTHM: regular rhythm HEART SOUNDS: S1 normal heart sound present and S2 normal heart sound present PERIPHERAL PULSES: Peripheral pulses 2+ throughout GI: COMMON NORMALS: Normal to inspection, nondistended, normoactive bowel sounds present, Soft to palpation, non-tender and no masses PALPATION: Yes Soft to palpation : COMMON NORMALS: Yes no CVA tenderness BLADDER/KIDNEY EXAM: Yes no CVA tenderness Back/Pelvis: COMMON NORMALS: no CVA tenderness Extremity: COMMON NORMALS: no calf tenderness GENERAL: Yes edema (Bilateral nonpitting edema lower extremities-left more swollen than right) Neuro: COMMON NORMALS: patient oriented x3 and moves all extremities SENSORIUM/ORIENTATION: Yes alert Skin: GENERAL SKIN EXAM: dry skin Course Reevaluation(s): Reevaluation #1: After patient received 1 L of IV fluids her heart palpitations improved and her heart rate was between 80-100 bpm. Time: 13:45 Vital Signs: Vital signs: Vital Signs Temperature 98.4 F 01/17/21 11:48 Pulse Rate 102 H 01/17/21 14:22 Respiratory Rate 17 01/17/21 14:22 Blood Pressure 128/80 01/17/21 14:22 Pulse Oximetry 99 01/17/21 14:22 MDM - General Adult MDM Narrative: Medical decision making narrative: Patient is a 25-year-old female comes to the ED with palpitations. Patient's heart rate was around 115-130 bpm upon presentation here in the ED. She described having a little bit of chest heaviness but no other acute complaint. Patient had some bilateral lower extremity edema with more swelling on the left leg. The rest of patient's exam is benign. CBC and CMP are unremarkable. D-dimer and troponins were negative. hCG negative. EKG showed sinus tachycardia with no ST segment elevation or depression seen. Chest x-ray was unremarkable. Patient was given 1 L of IV fluids and her heart rate/palpitations improved. She was consistently here around 80 to 100 bpm after getting IV fluid's. Patient was diagnosed with palpitations and discharged home. I placed an order with case management for patient to be referred to cardiology for further evaluation. Patient stated that she was told a couple months ago that she was referred to cardiology but never received a call. Patient also has follow-up with her PCP on Tuesday, January 19. Return to ED precautions given. Patient is to agree with plan. Lab Data: Attestation: I reviewed the patient's lab results. Labs: Lab Results 01/17/21 01/17/21 01/17/21 11:01 11:01 11:01 WBC 11.1 10^3/uL H 10 ^3/uL (4.0-10.0) RBC 5.54 10^6/uL H 10 ^6/uL (4.1-5.3) Hgb 13.0 g/dL g/dL (11.5-15.3) Hct 41.6 % % (37.0-47.0) MCV 75.1 fl L fl (81-99) MCH 23.5 pg L pg (28.0-34.0) MCHC 31.3 g/dL g/dL (30.0-36.0) RDW 13.6 % % (12.1-15.1) Plt Count 368 10^3/cmm 10^3 /cmm (130-400) MPV 9.8 fL fL (7.4-10.4) Neut % (Auto) 64.0 % % Lymph % (Auto) 26.2 % % [place] % (Auto) 4.6 % % Eos % (Auto) 4.1 % % Baso % (Auto) 0.7 % % Neut # (Auto) 7.12 10^3/uL 10^3 /uL (1.8-7.7) Lymph # (Auto) 2.9 10^3/uL 10^3/ uL (0.8-4.8) [place] # (Auto) 0.5 10^3/uL 10^3/ uL (0.2-0.9) Eos # (Auto) 0.5 10^3/uL 10^3/ uL (0.0-0.8) Baso # (Auto) 0.1 10^3/uL 10^3/ uL (0.0-0.1) Nucleated RBC % (a uto) 0 % % Nucleated RBCs # 0.0 /100WBC /100W BC D-Dimer 0.30 ug/mIFEU ug/ mIFEU (0-0.59) Sodium 137 mmol/L mmol/L (136-145) Potassium 4.3 mmol/L mmol/L (3.5-5.1) Chloride 104 mmol/L mmol/L (98-107) Carbon Dioxide 22 mmol/L mmol/L (22-29) Anion Gap 15.3 (5-19) BUN 7 mg/dL mg/dL (6-20) Creatinine 0.7 mg/dL mg/dL (0.5-0.9) GFR Calculation 101.1 mL/min mL/m in (90-130) Glucose 90 mg/dL mg/dL (65-115) Calculated Osmolal ity 282 mOsm/kg L mOs m/kg (285-295) Calcium 9.1 mg/dL mg/dL (8.5-10.5) Total Bilirubin 0.3 mg/dL mg/dL (0.15-1.2) AST 15 U/L U/L (0-32) ALT 15 U/L U/L (0-33) Alkaline Phosphata se 110 IU/L H IU/L (35-105) Troponin T Baselin e Troponin T 120 Min [place] Delta Troponin T NT-Pro-B Natriuret Pep Total Protein 7.2 g/dL g/dL (6.6-8.7) Albumin 4.2 g/dL g/dL (3.5-5.2) Globulin 3.0 g/dL g/dL (1.3-4.6) Lipase 28 U/L U/L (13-60) HCG, Qual 01/17/21 01/17/21 01/17/21 11:01 11:01 11:01 WBC RBC Hgb Hct MCV MCH MCHC RDW Plt Count MPV Neut % (Auto) Lymph % (Auto) [place] % (Auto) Eos % (Auto) Baso % (Auto) Neut # (Auto) Lymph # (Auto) [place] # (Auto) Eos # (Auto) Baso # (Auto) Nucleated RBC % (a uto) Nucleated RBCs # D-Dimer Sodium Potassium Chloride Carbon Dioxide Anion Gap BUN Creatinine GFR Calculation Glucose Calculated Osmolal ity Calcium Total Bilirubin AST ALT Alkaline Phosphata se Troponin T Baselin e 6 ng/L ng/L (0-10) Troponin T 120 Min [place] Delta Troponin T NT-Pro-B Natriuret Pep 38 pg/mL pg/mL (0-125) Total Protein Albumin Globulin Lipase HCG, Qual Negative (Negative) 01/17/21 13:13 WBC RBC Hgb Hct MCV MCH MCHC RDW Plt Count MPV Neut % (Auto) Lymph % (Auto) [place] % (Auto) Eos % (Auto) Baso % (Auto) Neut # (Auto) Lymph # (Auto) [place] # (Auto) Eos # (Auto) Baso # (Auto) Nucleated RBC % (a uto) Nucleated RBCs # D-Dimer Sodium Potassium Chloride Carbon Dioxide Anion Gap BUN Creatinine GFR Calculation Glucose Calculated Osmolal ity Calcium Total Bilirubin AST ALT Alkaline Phosphata se Troponin T Baselin e Troponin T 120 Min [place] 6.00 ng/L ng/L (0-10) Delta Troponin T 0 ABS# ABS# (0-10) NT-Pro-B Natriuret Pep Total Protein Albumin Globulin Lipase HCG, Qual Imaging Data^: CXR: Attestation: I personally reviewed and interpreted this imaging study as follows: Radiologist's impression: [address] [address] XRay Report Signed Patient: Laya Cortez Unit #: [id number] : 1995 Age/Sex: 25 / F ADM Date: 01/17/21 Loc: ER Room/Bed: Attending Dr: Ordering Provider/Ordering MD: Rodney Barron Date of Service: 01/17/21 Procedure(s): XR chest 1V portable [id number] Accession Number(s): [id number] Report Number: [id number] PROCEDURE INFORMATION: Exam: XR Chest Exam date and time: 01/17/2021 10:57 AM Age: 25 years old Clinical indication: Other: Increase heart rate; Additional info: Chest heaviness TECHNIQUE: Imaging protocol: XR of the chest. Views: 1 view. COMPARISON: CR XR chest 1V portable [id number] 01/25/2020 8:19 PM FINDINGS: Lungs: Unremarkable. No consolidation. Pleural spaces: Unremarkable. No pleural effusion. No pneumothorax. Heart/Mediastinum: Unremarkable. No cardiomegaly. Bones/joints: Minimal dextroscoliosis. XR/XR chest 1V portable [id number] IMPRESSION: No acute findings. Dictated By: Aris Brewer MD Signed By: Aris Brewer MD Signed Date/Time: 01/17/21 1148 DD/ 1146 Vascular: Attestation: I personally reviewed and interpreted this imaging study as follows: Radiologist's impression: Ultrasound venous duplex of left lower extremity?no DVTs or blood clots seen. EKG Data^: EKG 1: Attestation: I personally reviewed and interpreted this EKG as follows: EKG interpretation date: 01/17/21 Interpretation: Sinus tachycardia, 110 bpm, no ST segment elevation or depression seen. Computer generated interpretation: Chest X-Ray 01/17/21 10:57 IMPRESSION: No acute findings. Venous Duplex 01/17/21 11:00 IMPRESSION: No evidence of deep vein thrombosis. Discharge Plan Discharge Patient Disposition: Home Clinical Impression: Palpitations Condition: Stable Prescriptions: No Action paroxetine HCl 40 mg tablet PO RF: 0 bupropion HCl [Wellbutrin SR] 100 mg tablet sustained-release 12 hr 100 mg PO DAILY RF: 0 methylphenidate HCl [Ritalin] 10 mg tablet 10 mg PO DAILY RF: 0 trazodone 100 mg tablet 100 mg PO DAILY RF: 0 ascorbate calcium (vitamin C) PO RF: 0 magnesium oxide PO RF: 0 potassium gluconate PO RF: 0 Tremfya 100 mg/mL Auto-Injector 100 mg SUBCUT Q60D RF: 0 ibuprofen 800 mg tablet 800 mg PO Q8H PRN (Reason: pain) Qty: 30 RF: 0 albuterol sulfate 90 mcg/actuation HFA aerosol inhaler 2 inh INHALATION Q4H PRN (Reason: shortness of breath or wheezing) Qty: 18 RF: 0 Discharge Orders: Discharge ED (Routine); Ordered 01/17/21 Ordered By: Rodney Barron Referrals: Christina Tirado MD [Primary Care Provider] - Discharge Diet: Regular Discharge Activity: Increase activity as tolerated Patient Instructions: Heart Palpitations (ED) Activity Restrictions/Additional Instructions: Follow-up with medical provider as directed. Go to your scheduled appointment with Dr. Tirado Tuesday and case management will be contacting you in the next several days to set up an appointment with cardiology for further evaluation. Continue taking all home medications as previously prescribed. Return to the ER or your medical provider if condition worsens. Please read and understand discharge instructions. Thank you for choosing [facility] for your healthcare needs today. Please realize this is an emergency room and that we are providing you with a medical screening exam and this may not be complete and all inclusive of all the testing and or work up that you may need to determine your ailment or severity of your illness. It is very important that you follow up as instructed or that you return to the Emergency Department should you have concerns or if your condition changes or worsens in any way. Coding Level of Care Code ED Sky Diver for Sajang Fwd Exam Comprehensive
--- NOTE | 2021-01-17 11:00 | USR_ITS ---
PROCEDURE INFORMATION: Exam: US Duplex Left Lower Extremity Veins, Limited Exam date and time: 01/17/2021 11:00 AM Age: 25 years old Clinical indication: Swelling (edema) of limb; Lower extremity, left; Additional info: Left lower leg swelling TECHNIQUE: Imaging protocol: Real-time Duplex ultrasound of the Left Lower Extremity with 2-D campos scale, color Doppler flow and spectral waveform analysis with image documentation. Limited exam focused on the left lower extremity veins. COMPARISON: CR Ankle 3 views, LEFT* [id number] 02/05/2019 1:21 PM FINDINGS: Left deep veins: Unremarkable. The common femoral, femoral, proximal profunda femoral and popliteal veins are patent without thrombus. Normal Doppler waveforms. Normal compressibility and/or augmentation response. Left superficial veins: Unremarkable. Saphenofemoral junction is patent without thrombus. Soft tissues: Unremarkable. US/CV venous duplex [facility] [id number] IMPRESSION: No evidence of deep vein thrombosis.
[2021-01-17 11:32] LABS: Basophils # 0.1 10^3/uL (0.0-0.1); Basophils % 0.7 %; Eosinophils # 0.5 10^3/uL (0.0-0.8); Eosinophils % 4.1 %; Hematocrit 41.6 % (37.0-47.0); Lymphocytes # 2.9 10^3/uL (0.8-4.8); Lymphocytes % 26.2 %; Mean Corpuscular HGB Conc 31.3 g/dL (30.0-36.0); Mean Corpuscular Hemoglobin 23.5 pg (28.0-34.0); Mean Corpuscular Volume 75.1 fl (81-99); Mean Platelet Volume 9.8 fL (7.4-10.4); Monocytes # 0.5 10^3/uL (0.2-0.9); Monocytes % 4.6 %; Neutrophils # 7.12 10^3/uL (1.8-7.7); Nucleated Red Blood Cells % 0 %; Platelet Count 368 10^3/cmm (130-400); Red Blood Count 5.54 10^6/uL (4.1-5.3); Red Cell Distribution Width 13.6 % (12.1-15.1); White Blood Count 11.1 10^3/uL (4.0-10.0)
[2021-01-17] MEDS: hyDROXYzine 25 mg Capsule 50 MG PO (11:34)
[2021-01-17 11:48] VITALS: BP 158/96; PULSE 110; RESP 23; TEMP 36.9; O2SAT 99
[2021-01-17 11:53] LABS: Troponin(5th) Baseline 6 ng/L (0-10)
[2021-01-17 11:54] LABS: HCG, Serum Qual Negative (Negative)
[2021-01-17 12:18] LABS: Alanine Aminotransferase 15 U/L (0-33); Albumin Level 4.2 g/dL (3.5-5.2); Alkaline Phosphatase 110 IU/L (35-105); Blood Urea Nitrogen 7 mg/dL (6-20); Calcium 9.1 mg/dL (8.5-10.5); Carbon Dioxide 22 mmol/L (22-29); Chloride 104 mmol/L (98-107); Creatinine Clr Calc Pharmacy 149.3998; Glomerular Filtration Rate 101.1 mL/min (90-130); Glucose 90 mg/dL (65-115); Lipase 28 U/L (13-60); Osmolality Calculated 282 mOsm/kg (285-295); Sodium 137 mmol/L (136-145); Total Bilirubin 0.3 mg/dL (0.15-1.2); Total Protein 7.2 g/dL (6.6-8.7)
[2021-01-17 12:26] VITALS: BP 132/94; PULSE 127; RESP 17; O2SAT 98
[2021-01-17 12:27] LABS: Anion Gap 15.3 (5-19); Aspartate Amino Transferase 15 U/L (0-32); Potassium 4.3 mmol/L (3.5-5.1)
[2021-01-17] MEDS: sodium chloride 0.9% 1,000 ML 999 ML IV (12:32)
--- NOTE | 2021-01-17 12:58 | ECG_ITS ---
[facility] Test Date: 2021-01-17 Pat Name: Laya Cortez Department: Room: Gender: Female Continuous Improvement Analyst: : 1995 Requested By: Rodney Barron Order Number: [id number] Melody MD: DAVID KINSEY Measurements Intervals [place] Rate: 110 P: 45 [place]: 141 QRS: 42 QRSD: 76 T: 57 QT: 325 QTc: 441 Interpretive Statements SINUS TACHYCARDIA POSSIBLE LEFT ATRIAL ENLARGEMENT [-0.1mV P-WAVE IN V1/V2] LOW QRS VOLTAGE IN PRECORDIAL LEADS [QRS DEFLECTION < 1.0 mV IN CHEST LEADS] ABNORMAL RHYTHM ECG Compared to ECG 01/25/2020 20:44:16 Sinus rhythm no longer present Electronically Signed On 01-17-2021 18:24:24 CDT by DAVID KINSEY [id number]
[2021-01-17 13:04] LABS: NT Pro B Type Natriuretic Pept 38 pg/mL (0-125)
[2021-01-17 13:07] VITALS: BP 119/76; PULSE 104; RESP 20; O2SAT 92
[2021-01-17 13:50] LABS: Troponin 5 2HR Delta 0 ABS# (0-10)
[2021-01-17 14:22] VITALS: BP 128/80; PULSE 102; RESP 17; O2SAT 99
--- NOTE | 2021-01-17 16:58 | ECG_ITS ---
[facility] Test Date: 2021-01-17 Pat Name: Laya Cortez Department: Room: Gender: Female Ticket Manager: : 1995 Requested By: Rodney Braron Order Number: [id number] Reading MD: DAVID KINSEY Measurements Intervals [place] Rate: 84 P: 39 [place]: 149 QRS: 48 QRSD: 107 T: 37 QT: 372 QTc: 440 Interpretive Statements SINUS RHYTHM LOW QRS VOLTAGE IN PRECORDIAL LEADS [QRS DEFLECTION < 1.0 mV IN CHEST LEADS] Compared to ECG 01/17/2021 10:50:46 Sinus tachycardia no longer present Electronically Signed On 01-17-2021 18:24:13 CDT by DAVID KINSEY [id number]
--- NOTE | 2021-01-20 09:39 | DCPLANNER ---
Addendum entered by Maia Funes 05/08/21 11:40: Patient had a follow up appointment scheduled with [facility] - patient did attend appointment. Original Note: photo manager had message to schedule a follow up appointment for patient with [facility]. photo manager called the [facility], spoke with Sophie, gave clinic patients information. A follow up appointment was scheduled for Tuesday, January 21, 2021 at 1:45 with SKIP MINER, Carrie Saenz. photo manager called patient and gave patient appointment information.
== END 2021-01-17 14:15 | disposition home or self-care (01) ==
PROVIDERS: Emergency Provider Physician Assistant; PCP Family Medicine
DX: R00.2 Palpitations (principal)
CPT/HCPCS: 36415; 71045; 80053; 83690; 83880; 84484; 84703; 85025; 85378; 93005; 93971; 96360; 99284; J7030

== ENCOUNTER 2021-02-07 06:31 | Emergency (ER) | payer BC, SELFPAY ==
[2021-02-07 06:39] VITALS: BP 154/102; PULSE 97; RESP 16; TEMP 36.4; O2SAT 99; BMI 46.9
[2021-02-07 06:43] VITALS: BP 154/102; PULSE 99; RESP 16; O2SAT 100
--- NOTE | 2021-02-07 07:07 | ED_ITS ---
HPI - Abdominal Pain General: Chief Complaint: Abdominal Pain Stated Complaint: N/D AND ABD PAINS X4 DAYS Time Seen by Provider: 02/07/21 06:42 History of Present Illness: HPI narrative: 25-year-old female presents emergency room complaining of nausea vomiting diarrhea abdominal pain for last 4 days. She denies any hematochezia melena hematemesis coffee-ground emesis relates most of her pain in the suprapubic area. No dysuria urgency or frequency no hematuria. States she has loose watery stools for last several days. Is not been undergoing antibiotics recently. She is on several psychiatric medications including methylphenidate duloxetine and aripiprazole. Several of these medications are new or have adjustments recently. Patient denies any chest pain or shortness of breath. MD elicited complaint: abdominal pain Onset (ago): day(s) Pain Consistency: intermittent Location: Suprapubic Quality: cramping Radiation: none Migration to: no migration Exacerbating factors: nothing Relieving factors: nothing Associated Symptoms: Reports bloating, change in bowel habits, change in stool character, GI cramping, diarrhea, nausea, poor appetite and vomiting; Denies anorexia, belching, chills, coffee ground emesis, constipation, dyspepsia, dysuria, excessive flatus, fever(s), heartburn, hematochezia, hematuria, hematemesis, fecal incontinence, loose stools, melena and syncope Related Data: Date of Last Menstrual Period: 01/25/20 Review of Systems Const: Denies: fever(s) or chills ENMT: Denies: throat pain, ear or mastoid pain, nasal discharge or nasal congestion Card: Denies: syncope Resp: Denies: dyspnea, productive cough or non-productive cough GI: Reports: nausea, vomiting, diarrhea, bloating, GI cramping, change in bowel habits and change in stool character; Denies: hematemesis, coffee ground emesis, heartburn, constipation, belching, excessive flatus, fecal incontinence, hematochezia or melena : Denies: dysuria or hematuria Skin/Breast: Denies: rash or pruritus PFS ED PFSH: Medical History Psoriasis Psychiatric care Family History Father Diabetes Other Alzheimer disease Cancer Renal failure Social History Alcohol intake: current Alcohol intake frequency: holidays/special occasions only 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 Reproductive History: Date of last menstrual period: 01/25/20 Physical Exam Const: COMMON NORMALS: no acute distress GENERAL APPEARANCE: cooperative and comfortable ORIENTATION/CONSCIOUSNESS: Yes awake, Yes oriented to person, Yes oriented to place and Yes oriented to time HENMT: COMMON NORMALS: normocephalic, atraumatic, hearing grossly normal bilaterally, external ears normal, EAC's normal, TM's normal bilaterally, Normal nasal mucous membranes and turbinates present, moist oral mucous membranes and oropharynx normal HEAD & SCALP: normocephalic and atraumatic NOSE: Normal nasal mucous membranes and turbinates present EXTERNAL EAR: Yes external ears normal EXTERNAL AUDITORY CANAL: EAC's normal TYMPANIC MEMBRANE: TM's normal bilaterally Eye: COMMON NORMALS: Equal, round and reactive pupils present, EOMs intact bilaterally, conjunctivae normal and no scleral icterus CONJUNCTIVA: Yes conjunctivae normal PUPIL: Yes Equal, round and reactive pupils present Neck/C-Spine: COMMON NORMALS: full ROM, no lymphadenopathy, supple and no JVD Lymph: LYMPHATIC: no lymphadenopathy noted and no lymphedema noted Resp: COMMON NORMALS: normal respiratory effort, No retractions, No use of accessory muscles and clear to auscultation bilaterally AUSCULTATION: clear to auscultation bilaterally Cardio: COMMON NORMALS: no JVD, regular rate, regular rhythm and No murmurs present (Cardio) RATE: regular rate RHYTHM: regular rhythm GI: COMMON NORMALS: Soft to palpation and No hepatosplenomegaly present AUSCULTATION: Yes normoactive bowel sounds PALPATION: Yes Soft to palpation, No Tenderness to palpation present (GI), No Guarding due to palpation present (GI) and Yes No hepatosplenomegaly present Extremity: COMMON NORMALS: normal to inspection, capillary refill normal, no clubbing, cyanosis or edema, no calf tenderness and no pedal edema Neuro: SENSORIUM/ORIENTATION: Yes oriented to person, Yes oriented to place and Yes oriented to time Skin: COMMON NORMALS: no rashes or lesions noted GENERAL SKIN EXAM: no rashes or lesions noted Course Vital Signs: Vital signs: Vital Signs Temperature 97.6 F 02/07/21 06:39 Pulse Rate 93 02/07/21 07:26 Respiratory Rate 14 02/07/21 07:26 Blood Pressure 160/97 02/07/21 07:26 Pulse Oximetry 99 02/07/21 07:26 MDM - Abdominal Pain MDM Narrative: Medical decision making narrative: CT and laboratory studies reviewed as found on the chart. Patient has mesenteric lymphadenitis clear liquid diet 24 to 48 hours antiemetics as needed follow-up as needed Lab Data: Labs: Lab Results 02/07/21 02/07/21 02/07/21 07:17 07:17 07:17 WBC 10.3 10^3/uL H 10 ^3/uL (4.0-10.0) RBC 5.25 10^6/uL 10^6 /uL (4.1-5.3) Hgb 11.9 g/dL g/dL (11.5-15.3) Hct 38.9 % % (37.0-47.0) MCV 74.1 fl L fl (81-99) MCH 22.7 pg L pg (28.0-34.0) MCHC 30.6 g/dL g/dL (30.0-36.0) RDW 13.6 % % (12.1-15.1) Plt Count 396 10^3/cmm 10^3 /cmm (130-400) MPV 9.5 fL fL (7.4-10.4) Neut % (Auto) 71.4 % % Lymph % (Auto) 21.0 % % Crockett % (Auto) 4.0 % % Eos % (Auto) 2.7 % % Baso % (Auto) 0.6 % % Neut # (Auto) 7.35 10^3/uL 10^3 /uL (1.8-7.7) Lymph # (Auto) 2.2 10^3/uL 10^3/ uL (0.8-4.8) Crockett # (Auto) 0.4 10^3/uL 10^3/ uL (0.2-0.9) Eos # (Auto) 0.3 10^3/uL 10^3/ uL (0.0-0.8) Baso # (Auto) 0.1 10^3/uL 10^3/ uL (0.0-0.1) Nucleated RBC % (a uto) 0 % % Nucleated RBCs # 0.0 /100WBC /100W BC Sodium 138 mmol/L mmol/L (136-145) Potassium 4.0 mmol/L mmol/L (3.5-5.1) Chloride 104 mmol/L mmol/L (98-107) Carbon Dioxide 22 mmol/L mmol/L (22-29) Anion Gap 16.0 (5-19) BUN 6 mg/dL mg/dL (6-20) Creatinine 0.8 mg/dL mg/dL (0.5-0.9) GFR Calculation 86.7 mL/min L mL/ min (90-130) Glucose 89 mg/dL mg/dL (65-115) Calculated Osmolal ity 283 mOsm/kg L mOs m/kg (285-295) Calcium 9.2 mg/dL mg/dL (8.5-10.5) Total Bilirubin 0.3 mg/dL mg/dL (0.15-1.2) AST 14 U/L U/L (0-32) ALT 21 U/L U/L (0-33) Alkaline Phosphata se 102 IU/L IU/L (35-105) Creatine Kinase 43 U/L U/L (26-192) Total Protein 7.0 g/dL g/dL (6.6-8.7) Albumin 4.0 g/dL g/dL (3.5-5.2) Globulin 3.0 g/dL g/dL (1.3-4.6) Lipase 19 U/L U/L (13-60) HCG, Qual Negative (Negative) Urine Color Urine Appearance Urine pH Ur Specific Gravit y Urine Protein Urine Glucose (UA) Urine Ketones Urine Blood Urine Nitrate Urine Bilirubin Urine Urobilinogen Ur Leukocyte More[place] ase Urine RBC Urine WBC Ur Squamous Epith Cells Amorphous Sediment Urine Bacteria Urine Mucus 02/07/21 08:00 WBC RBC Hgb Hct MCV MCH MCHC RDW Plt Count MPV Neut % (Auto) Lymph % (Auto) Crockett % (Auto) Eos % (Auto) Baso % (Auto) Neut # (Auto) Lymph # (Auto) [place]ckett # (Auto) Eos # (Auto) Baso # (Auto) Nucleated RBC % (a uto) Nucleated RBCs # Sodium Potassium Chloride Carbon Dioxide Anion Gap BUN Creatinine GFR Calculation Glucose Calculated Osmolal ity Calcium Total Bilirubin AST ALT Alkaline Phosphata se Creatine Kinase Total Protein Albumin Globulin Lipase HCG, Qual Urine Color Yellow (Yellow) Urine Appearance Hazy A (CLEAR) Urine pH 5 (5-7) Ur Specific Gravit y 1.025 (1.005-1.030) Urine Protein Neg (Negative) Urine Glucose (UA) Norm (Normal) Urine Ketones Negative (Negative) Urine Blood 3+ H (Negative) Urine Nitrate Negative (Negative) Urine Bilirubin Neg (Negative) Urine Urobilinogen Norm mg/dL mg/dL (Negative) Ur Leukocyte Morena ase Negative (Negative) Urine RBC 0-4 /hpf H /hpf (0-2) Urine WBC Rare /hpf /hpf (0-5) Ur Squamous Epith Cells 5-10 /hpf H /hpf (0-5) Amorphous Sediment Not Reportable Urine Bacteria 2+ /hpf H /hpf (NONE) Urine Mucus 2+ /hpf /hpf Discharge Plan Discharge Patient Disposition: Home Clinical Impression: Mesenteric adenitis Condition: Stable Prescriptions: New Zofran 4 mg tablet 4 mg PO Q6H PRN (Reason: nausea and vomiting) Qty: 20 RF: 0 No Action aripiprazole [Abilify] 5 mg tablet 7.5 mg PO DAILY RF: 0 prazosin 5 mg capsule 5 mg PO DAILY RF: 0 zaleplon 10 mg capsule PO RF: 0 duloxetine [Cymbalta] 30 mg capsule,delayed release(DR/EC) 30 mg PO DAILY RF: 0 Nexplanon 68 mg implant subdermal RF: 0 metoprolol succinate 25 mg tablet extended release 24 hr 25 mg PO DAILY Qty: 90 RF: 2 methylphenidate HCl [Ritalin] 10 mg tablet 10 mg PO DAILY RF: 0 hydroxyzine pamoate 50 mg capsule 50 mg PO QID PRNRF: 0 ibuprofen 800 mg tablet 800 mg PO Q8H PRN (Reason: pain) Qty: 30 RF: 0 albuterol sulfate 90 mcg/actuation HFA aerosol inhaler 2 inh INHALATION Q4H PRN (Reason: shortness of breath or wheezing) Qty: 18 RF: 0 Discharge Orders: Discharge ED (Routine); Ordered 02/07/21 Ordered By: Sg Morataya Referrals: GOMEZ MIMS,OTIS Zhang MD [Primary Care Provider] - Discharge Diet: Clear Liquid Discharge Activity: Increase activity as tolerated Patient Instructions: Opioid Safety Coding Level of Care Code ED Business Team Leader for Sajang Fwd Exam Comprehensive
--- NOTE | 2021-02-07 07:10 | CTR_ITS ---
PROCEDURE INFORMATION: Exam: CT Abdomen And Pelvis With Contrast Exam date and time: 02/07/2021 7:10 AM Age: 25 years old Clinical indication: Abdominal pain; Localized; Lower; Additional info: Abd pain TECHNIQUE: Imaging protocol: Computed tomography of the abdomen and pelvis with contrast. Total images: 249 Radiation optimization: All CT scans at this facility use at least one of these dose optimization techniques: automated exposure control; mA and/or kV adjustment per patient size (includes targeted exams where dose is matched to clinical indication); or iterative reconstruction. Contrast material: OMNIPAQUE 300; Contrast volume: 95 ml; Contrast route: INTRAVENOUS (IV); COMPARISON: US abdomen limited [id number] 11/29/2019 9:45 AM RADIATION DOSE METRICS: Total DLP (mGy-cm): 1786.72 FINDINGS: Liver: Normal. No mass. Gallbladder and bile ducts: Normal. No calcified stones. No ductal dilation. Pancreas: Normal. No ductal dilation. Spleen: Normal. No splenomegaly. Adrenal glands: Normal. No mass. Kidneys and ureters: Normal. No hydronephrosis. Stomach and bowel: Colonic wall thickening present in the ascending colon and transverse colon without adjacent inflammatory changes. Prominent mild fluid distended distal small bowel. Findings suspicious of an enterocolitis either infectious or inflammatory. No wall thickening of the terminal ileum is seen. Appendix: No evidence of appendicitis. Intraperitoneal space: Unremarkable. No free air. No significant fluid collection. Vasculature: Unremarkable. No abdominal aortic aneurysm. Lymph nodes: Nonspecific prominent mesenteric lymph nodes could be subtle evidence of infectious or inflammatory enteritis or adenitis. Urinary bladder: Unremarkable as visualized. Reproductive: Unremarkable as visualized. Bones/joints: Unremarkable. No acute fracture. Soft tissues: Unremarkable. CT/CT abdomen pelvis w con* [id number] IMPRESSION: 1. Nonspecific prominent mesenteric lymph nodes could be subtle evidence of infectious or inflammatory enteritis or adenitis. 2. Colonic wall thickening present in the ascending colon and transverse colon without adjacent inflammatory changes. Prominent mild fluid distended distal small bowel. Findings suspicious of an enterocolitis either infectious or inflammatory. No wall thickening of the terminal ileum is seen. Radiation Dose CTDIVOL = (mGy): DLP = 1786.72 (mGy-cm)
[2021-02-07] MEDS: ondansetron 2 mg/ML SDV 2 mL 4 MG IVP (07:21)
[2021-02-07 07:22] LABS: Basophils # 0.1 10^3/uL (0.0-0.1); Basophils % 0.6 %; Eosinophils # 0.3 10^3/uL (0.0-0.8); Eosinophils % 2.7 %; Hematocrit 38.9 % (37.0-47.0); Hemoglobin 11.9 g/dL (11.5-15.3); Lymphocytes # 2.2 10^3/uL (0.8-4.8); Mean Corpuscular HGB Conc 30.6 g/dL (30.0-36.0); Mean Corpuscular Hemoglobin 22.7 pg (28.0-34.0); Mean Corpuscular Volume 74.1 fl (81-99); Mean Platelet Volume 9.5 fL (7.4-10.4); Monocytes # 0.4 10^3/uL (0.2-0.9); Neutrophils # 7.35 10^3/uL (1.8-7.7); Neutrophils % 71.4 %; Nucleated Red Blood Cells % 0 %; Platelet Count 396 10^3/cmm (130-400); Red Blood Count 5.25 10^6/uL (4.1-5.3); Red Cell Distribution Width 13.6 % (12.1-15.1); White Blood Count 10.3 10^3/uL (4.0-10.0)
[2021-02-07 07:26] VITALS: BP 160/97; PULSE 93; RESP 14; O2SAT 99
[2021-02-07 07:37] LABS: HCG, Serum Qual Negative (Negative)
[2021-02-07 07:51] LABS: Alanine Aminotransferase 21 U/L (0-33); Alkaline Phosphatase 102 IU/L (35-105); Aspartate Amino Transferase 14 U/L (0-32); Blood Urea Nitrogen 6 mg/dL (6-20); Calcium 9.2 mg/dL (8.5-10.5); Carbon Dioxide 22 mmol/L (22-29); Chloride 104 mmol/L (98-107); Creatine Phosphokinase 43 U/L (26-192); Glomerular Filtration Rate 86.7 mL/min (90-130); Glucose 89 mg/dL (65-115); Lipase 19 U/L (13-60); Osmolality Calculated 283 mOsm/kg (285-295); Sodium 138 mmol/L (136-145); Total Bilirubin 0.3 mg/dL (0.15-1.2)
[2021-02-07] MEDS: iohexol 300 mg/mL 100 mL Btl IV (08:13)
[2021-02-07 08:23] LABS: Bilirubin Urine Neg (Negative); Blood Urine 3+ (Negative); Glucose Urine UA Norm (Normal); Ketones Urine Negative (Negative); Nitrate Urine Negative (Negative); Protein Urine Neg (Negative); Specific Gravity, Urine 1.025 (1.005-1.030); Urine Appearance Hazy (CLEAR); Urine Color Yellow (Yellow); pH Urine 5 (5-7)
[2021-02-07 08:24] LABS: Add Urine Microscopic? YES; Leukocyte Esterase Urine Negative (Negative); Urobilinogen Urine Norm (Negative)
[2021-02-07 08:27] LABS: Bacteria Urine 2+ /hpf; Mucus Urine 2+ /hpf; RBC Urine 0-4 /hpf (0-2); WBC Urine RARE /hpf (0-5)
[2021-02-07 08:28] LABS: Add Urine Culture? Yes
[2021-02-07 09:52] VITALS: BP 110/72; PULSE 79; RESP 16; O2SAT 94
== END 2021-02-07 09:54 | disposition home or self-care (01) ==
PROVIDERS: Emergency Provider Family Medicine; PCP Internal Medicine Pulmonary Disease
DX: I88.0 Nonspecific mesenteric lymphadenitis (principal)
CPT/HCPCS: 74177; 80053; 81001; 82550; 83690; 84703; 85025; 87086; 96361; 96374; 99284; J2405; J7030; Q9967

== ENCOUNTER → 2021-03-25 15:31 | Outpatient (BNVA) | payer BC, SELFPAY | PROVIDERS: PCP Internal Medicine Pulmonary Disease; Visit Provider Nurse Practitioner | DX: B34.9 Viral infection, unspecified (principal) | CPT/HCPCS: 87635 ==

== ENCOUNTER → 2021-04-16 09:30 | Outpatient (BNVA) | payer BC, SELFPAY | PROVIDERS: PCP Internal Medicine Pulmonary Disease; Visit Provider Internal Medicine Cardiovascular Disease | DX: M79.89 Other specified soft tissue disorders (principal); R06.02 Shortness of breath | CPT/HCPCS: 80048; 83735; 83880 ==

== ENCOUNTER → 2021-05-23 10:27 | Outpatient (BNVA) | payer BC, SELFPAY | PROVIDERS: PCP Internal Medicine Pulmonary Disease; Visit Provider Registered Nurse Neonatal Intensive Care | DX: Z20.822 Contact with and (suspected) exposure to COVID-19 (principal) | CPT/HCPCS: 87635 ==

== ENCOUNTER 2021-11-04 21:32 | Outpatient (CLI) | payer OTHER, SELFPAY ==
[2021-11-05 02:28] LABS: Blood Urine Trace (Negative); Glucose Urine UA Norm (Normal); Ketones Urine Negative (Negative); Nitrate Urine Negative (Negative); Protein Urine Neg (Negative); Specific Gravity, Urine 1.025 (1.005-1.030); Urine Appearance Clear (CLEAR); Urine Color Yellow (Yellow); pH Urine 5 (5-7)
[2021-11-05 02:29] LABS: Add Urine Culture? Yes; Bacteria Urine 2+ /hpf; Bilirubin Urine Neg (Negative); Leukocyte Esterase Urine 1+ (Negative); Mucus Urine 3+ /hpf; RBC Urine 0-4 /hpf (0-2); Urobilinogen Urine Norm (Negative)
== END 2021-11-04 21:33 | disposition home or self-care (01) ==
LOC: LAB 21:36
PROVIDERS: PCP Internal Medicine Pulmonary Disease; Visit Provider Family Medicine
DX: R30.0 Dysuria (principal)
CPT/HCPCS: 81001; 87086

== ENCOUNTER → 2021-12-15 12:18 | Outpatient (BNVA) | payer OTHER, SELFPAY | PROVIDERS: PCP Internal Medicine Pulmonary Disease; Visit Provider Internal Medicine Cardiovascular Disease | DX: M79.89 Other specified soft tissue disorders (principal); R06.02 Shortness of breath; R00.0 Tachycardia, unspecified; R00.2 Palpitations | CPT/HCPCS: 80053; 83735; 83880; 84443; 85025 ==

== ENCOUNTER 2021-12-30 07:10 | Outpatient (RCR) | payer OTHER, SELFPAY | END 2022-01-15 23:59 | disposition home or self-care (01) | LOC: SPT 07:10 | PROVIDERS: PCP Internal Medicine Pulmonary Disease; Visit Provider Internal Medicine Cardiovascular Disease | DX: M79.89 Other specified soft tissue disorders (principal); I89.0 Lymphedema, not elsewhere classified | CPT/HCPCS: 29581; 97140; 97161 ==

== ENCOUNTER 2022-01-15 20:46 | Emergency (ER) | payer OTHER, SELFPAY ==
[2022-01-15 20:50] VITALS: BP 178/93; PULSE 107; RESP 16; TEMP 36.7; O2SAT 95
--- NOTE | 2022-01-15 21:55 | ED_ITS ---
Documented by User: Karrie Martin MD 01/15/22 23:03 HPI - General Adult General: Chief complaint: Headache Stated complaint: N\V\Headache Time Seen by Provider: 01/15/22 21:51 History of Present Illness: Patient is a 26-year-old Fe with history of depression, anxiety, and PCOS who presents the emergency room for concerns of body aches, generalized weakness, nausea vomiting and headache for 1 day. Patient was was at work at 1 AM yesterday when she began developing symptoms. Patient went to an urgent care at which point time was diagnosed with UTI. Sussy ent was started on Macrobid. Patient attempted to take her dose of Macrobid however vomited prior to doing so. Patient reports that her symptoms of nausea vomiting headache and chills got worse. Patient complains of frontal headache by laterally. Denies chest pain, shortness of breath, abdominal pain, diarrhea/melena/hematochezia. Onset:1 day ago Duration:1 day Location:home Severity:moderate Associated symptoms: Reports headache(s), nausea and vomiting; Deny chest pain, dyspnea, rash or palpitations Review of Systems Const: Reports: chills, body aches and other (+generalized weakness); Denies: fever(s) Eyes: Denies: change in vision ENMT: Denies: mouth pain Card: Denies: chest pain or palpitations Resp: Denies: dyspnea or non-productive cough GI: Reports: nausea and vomiting; Denies: abdominal pain or diarrhea : Denies: dysuria Musc: Denies: extremity pain Skin/Breast: Denies: rash or new lesions Neuro: Reports: headache(s); Denies: weakness in extremities Psych: Reports: other (Normal mood) Jeffery/Lymph: Denies: easy bruising [facility] ED PFSH: Medical History Anxiety and depression Diagnosed in her 20s and has been on medication. Has an appointment to follow-up with behavioral health care in March 2021 MDD (major depressive disorder) No pertinent past medical history Denies diabetes, asthma, hypertension, seizures, DVT/PE PCP: Dr. Dyer PCOS (polycystic ovarian syndrome) States that she was diagnosed with PCOS at [place] in her early 20s with irregular cycles Tachycardia with heart rate 100-120 beats per minute Reports having tachycardia and is taking metoprolol for rate control being managed by v block saw operator Dr. Oliveros. Surgical History S/P myringotomy with insertion of tube At the age of 1 S/P wisdom tooth extraction at age 18 Family History Father Diabetes Hyperlipidemia Hypertension Family/Other Ovarian cancer maternal great aunt Grandmother Breast cancer maternal, diagnosed in her late 60s or 70s Denies family history of Colon cancer Heart disease Uterine cancer Thyroid condition Stroke Social History Smoking and tobacco status: never smoked Female Reproductive History: Date of last menstrual period: 01/25/20 Physical Exam Const: COMMON NORMALS: alert HENMT: COMMON NORMALS: atraumatic HEAD & SCALP: atraumatic MOUTH: moist mucous membranes abnormal Eye: COMMON NORMALS: EOMs intact bilaterally and conjunctivae normal CONJUNCTIVA: Yes conjunctivae normal Neck/C-Spine: COMMON NORMALS: full ROM and supple Resp: COMMON NORMALS: normal respiratory effort and clear to auscultation bila terally AUSCULTATION: clear to auscultation bilaterally Cardio: RATE: tachycardic GI: COMMON NORMALS: Soft to palpation and non-tender PALPATION: Yes Soft to palpation Extremity: COMMON NORMALS: full ROM Neuro: SENSORIUM/ORIENTATION: Yes alert MOTOR EXAM: No Abnormal motor strength present and Other motor observations present (no focal motor deficits) Psych: COMMON NORMALS: speech normal SPEECH: Yes normal speech MOOD & AFFECT: Yes euthymic mood Course Vital Signs: Vital signs: Vital Signs Temperature 98.0 F 01/15/22 20:50 Pulse Rate 78 01/16/22 00:40 Respiratory Rate 14 01/16/22 00:40 Blood Pressure 117/50 01/16/22 00:40 Pulse Oximetry 94 01/16/22 00:40 Oxygen Delivery Me thod 01/16/22 00:40 [facility] - General Adult Medical Decision Making Patient is a 26-year-old Fe with history of depression, anxiety, and PCOS who presents the emergency room for concerns of body aches, generalized weakness, nausea vomiting and headache for 1 day. Physical, patient is mild distress and has dry mucous membrane. She is mildly tachycardic. Given patient, IVF, Reglan, Tylenol, Benadryl, and Zofran. Pending lab work-up and reassessment for medication at this time. Case signed out to the next provider. Lab Data : 01/15/22 22:22 01/15/22: Laboratory Results WBC 10.6 10^3/uL (4.0-10.0) H 01/15/22: RBC 5.47 10^6/uL (4.1-5.3) H 01/15/22: Hgb 14.2 g/dL (11.5-15.3) 01/15/22: Hct 43.9 % (37.0-47.0) 01/15/22: MCV 80.3 fl (81-99) L 01/15/22: MCH 26.0 pg (28.0-34.0) L 01/15/22: MCHC 32.3 g/dL (30.0-36.0) 01/15/22: RDW 12.7 % (12.1-15.1) 01/15/22: Plt Count 356 10^3/cmm (130-400) 01/15/22: MPV 9.8 fL (7.4-10.4) 01/15/22: Neut % (Auto) 74.2 % 01/15/22: Lymph % (Auto) 19.9 % 01/15/22: [place] % (Auto) 4.4 % 01/15/22: Eos % (Auto) 0.6 % 01/15/22: Baso % (Auto) 0.6 % 01/15/22: Neut # (Auto) 7.85 10^3/uL (1.8-7.7) H 01/15/22: Lymph # (Auto) 2.1 10^3/uL (0.8-4.8) 01/15/22: [place] # (Auto) 0.5 10^3/uL (0.2-0.9) 01/15/22 22: Eos # (Auto) 0.1 10^3/uL (0.0-0.8) 01/15/22 22:22 Baso # (Auto) 0.1 10^3/uL (0.0-0.1) 01/15/22 22:22 Nucleated RBC % (auto) 0 % 01/15/22 22:22 Nucleated RBCs # 0.0 /100WBC 01/15/22 22:22 Sodium 139 mmol/L (136-145) 01/15/22 22:22 Potassium 3.7 mmol/L (3.5-5.1) 01/15/22 22:22 Chloride 101 mmol/L (98-107) 01/15/22 22:22 Carbon Dioxide 27 mmol/L (22-29) 01/15/22 22:22 Anion Gap 14.7 (5-19) 01/15/22 22:22 BUN 8 mg/dL (6-20) 01/15/22 22:22 Creatinine 1.0 mg/dL (0.5-0.9) H 01/15/22 22:22 GFR Calculation 66.5 mL/min (90-130) L 01/15/22 22:22 Glucose 104 mg/dL (65-115) 01/15/22 22:22 Calculated Osmolality 287 mOsm/kg (285-295) 01/15/22 22:22 Calcium 9.8 mg/dL (8.5-10.5) 01/15/22 22:22 Total Bilirubin 0.5 mg/dL (0.15-1.2) 01/15/22 22:22 AST 17 U/L (0-32) 01/15/22 22:22 ALT 28 U/L (0-33) 01/15/22 22:22 Alkaline Phosphatase 121 U/L (35-105) H 01/15/22 22:22 Total Protein 7.8 g/dL (6.6-8.7) 01/15/22 22:22 Albumin 4.6 g/dL (3.5-5.2) 01/15/22: Globulin 3.2 g/dL (1.3-4.6) 01/15/22 22:22 Lipase 32 U/L (13-60) 01/15/22 22:22 Urine Color Dark yellow (Yellow) 01/15/22 22:22 Urine Appearance Sl hazy (CLEAR) A 01/15/22 22:22 Urine pH >=9.0 (5-7) A 01/15/22 22:22 Ur Specific Camp 1.015 (1.005-1.030) 01/15/22 22: Urine Protein 2+ (Negative) A 01/15/22 22: Urine Glucose (UA) Negative (Normal) 01/15/22 22:22 Urine Ketones Negative (Negative) 01/15/22 22:22 Urine Blood Trace-intact (Negative) A 01/15/22 22: Urine Nitrate Negative 01/15/22 22:22 Urine Bilirubin Small (Negative) 01/15/22 22:22 Urine Urobilinogen 1.0 mg/dL (Negative) 01/15/22 22:22 Ur Leukocyte Esterase Negative (Negative) 01/15/22 22: Urine RBC 5-10 /hpf (0-2) H 01/15/22 22:22 Urine WBC 15-25 /hpf (0-5) H 01/15/22 22:22 Ur Squamous Epith Cells 15-25 /hpf (0-5) H 01/15/22 22:22 Amorphous Sediment Not Reportable 01/15/22 22:22 Urine Bacteria 3+ /hpf (NONE) H 01/15/22 22:22 Urine Mucus 1+ /hpf 01/15/22 22:22 Nasal Influ A H1 2008 PCR Not detected (NOT DETECT) 01/15/22 22:22 Coronavirus 229E (PCR) Not detected (NOT DETECT) 01/15/22 22:22 Influenza A (H1) PCR Not detected (NOT DETECT) 01/15/22 22:22 Influenza A (H3) PCR Not detected (NOT DETECT) 01/15/22 22:22 Influenza Type A (PCR) Not detected (NOT DETECT) 01/15/22 22:22 Influenza Type B (PCR) Not detected (NOT DETECT) 01/15/22 22:22 SARS-CoV-2 (PCR) Not detected (NOT DETECT) 01/15/22 22:22 Discharge Plan Discharge Patient Disposition: Home Clinical Impression: Headache, Nausea & vomiting, UTI (urinary tract infection) Condition: Stable Prescriptions: New hydrocodone-acetaminophen 5-325 mg tablet 1 tab PO Q8H PRN (Reason: pain) Qty: 7 0RF ondansetron 4 mg film 4 mg PO DAILY PRN (Reason: nausea and vomiting) Qty: 10 0RF cephalexin 500 mg capsule 500 mg PO Q6H Qty: 28 0RF No Action Kyleena 17.5 mcg/24 hrs (5 yrs) 19.5 mg intrauterine device 1 device intrauterine .every 5 years Qty: 1 0RF acetaminophen [Tylenol] 325 mg tablet 325 mg PO QID PRN aripiprazole 10 mg tablet 10 mg PO DAILY Qty: 30 2RF Rx Instructions: Take one tablet by mouth once a day duloxetine 60 mg capsule,delayed release(DR/EC) 60 mg PO DAILY Qty: 30 2RF Rx Instructions: Take one capsule by mouth every morning trazodone 100 mg tablet 100 mg PO DAILY PRN (Reason: insomnia) Qty: 30 2RF Rx Instructions: Take 1/2 to 1 tablet at bedtime, if needed for insomnia hydroxyzine pamoate 50 mg capsule 50 mg PO BID PRN (Reason: anxiety or sleep) Qty: 60 2RF Rx Instructions: Take one capsule twice daily, if needed for anxiety or sleep nitrofurantoin monohyd/m-cryst [Macrobid] 100 mg capsule 100 mg PO BID 5 Days Qty: 10 0RF Rx Instructions: must administer with a meal/food metoprolol succinate 50 mg tablet extended release 24 hr 50 mg PO DAILY Qty: 90 2RF Discharge Orders: Discharge ED (Routine); Ordered 01/16/22 Ordered By: Jim Verdugo Referrals: OTIS DYER JR, MD [Primary Care Provider] - Discharge Diet: Advance as tolerated Discharge Activity: Increase activity as tolerated Patient Instructions: Acute Headache (ED) Activity Restrictions/Additional Instructions: Please come back to the emergency room you have any fever chills, worsening headache, focal weakness, nausea/vomiting, inability to perform daily activity, or any new concerning complaints. Coding Level of Care Code ED Cigar Brander for Chg Fwd Exam Comprehensive Documented by User: Jim Verdugo DO 01/16/22 02:03 HPI - General Adult General: Chief complaint: Headache Stated complaint: N\V\Headache Time Seen by Provider: 01/15/22 21:51 PFSH ED PFSH: Medical History Anxiety and depression Diagnosed in her 20s and has been on medication. Has an appointment to follow-up with behavioral health care in March 2021 MDD (major depressive disorder) No pertinent past medical history Denies diabetes, asthma, hypertension, seizures, DVT/PE PCP: Dr. Dyer PCOS (polycystic ovarian syndrome) States that she was diagnosed with PCOS at [place] in her early 20s with irregular cycles Tachycardia with heart rate 100-120 beats per minute Reports having tachycardia and is taking metoprolol for rate control being managed by v block saw operator Dr. Oliveros. Surgical History S/P myringotomy with insertion of tube At the age of 1 S/P wisdom tooth extraction at age 18 Family History Father Diabetes Hyperlipidemia Hypertension Family/Other Ovarian cancer maternal great aunt Grandmother Breast cancer maternal, diagnosed in her late 60s or 70s Denies family history of Colon cancer Heart disease Uterine cancer Thyroid condition Stroke Social History Smoking and tobacco status: never smoked Course Vital Signs: Vital signs: Vital Signs Temperature 98.0 F 01/15/22 20:50 Pulse Rate 78 01/16/22 00:40 Respiratory Rate 14 01/16/22 00:40 Blood Pressure 117/50 01/16/22 00:40 Pulse Oximetry 94 01/16/22 00:40 Oxygen Delivery Me thod 01/16/22 00:40 [facility] - General Adult Medical Decision Making Patient is a 26-year-old Fe with history of depression, anxiety, and PCOS who presents the emergency room for concerns of body aches, generalized weakness, nausea vomiting and headache for 1 day. Physical, patient is mild distress and has dry mucous membrane. She is mildly tachycardic. Given patient, IVF, Reglan, Tylenol, Benadryl, and Zofran. Pending lab work-up and reassessment for medication at this time. Case signed out to the next provider. Patient was still symptomatic. She is given another liter of fluid, 1 g of IV Rocephin for appearance of urinary tract infection, although urine is admittedly contaminated. She is feeling better. She will be allowed to rest. She will be discharged on antibiotic coverage. Lab Data : 01/15/22 22:22 01/15/22: Laboratory Results WBC 10.6 10^3/uL (4.0-10.0) H 01/15/22: RBC 5.47 10^6/uL (4.1-5.3) H 01/15/22 22: Hgb 14.2 g/dL (11.5-15.3) 01/15/22: Hct 43.9 % (37.0-47.0) 01/15/22: MCV 80.3 fl (81-99) L 01/15/22: MCH 26.0 pg (28.0-34.0) L 01/15/22: MCHC 32.3 g/dL (30.0-36.0) 01/15/22: RDW 12.7 % (12.1-15.1) 01/15/22: Plt Count 356 10^3/cmm (130-400) 01/15/22: MPV 9.8 fL (7.4-10.4) 01/15/22: Neut % (Auto) 74.2 % 01/15/22: Lymph % (Auto) 19.9 % 01/15/22: [place] % (Auto) 4.4 % 01/15/22: Eos % (Auto) 0.6 % 01/15/22: Baso % (Auto) 0.6 % 01/15/22: Neut # (Auto) 7.85 10^3/uL (1.8-7.7) H 01/15/22: Lymph # (Auto) 2.1 10^3/uL (0.8-4.8) 01/15/22: [place] # (Auto) 0.5 10^3/uL (0.2-0.9) 01/15/22 22: Eos # (Auto) 0.1 10^3/uL (0.0-0.8) 01/15/22 22:22 Baso # (Auto) 0.1 10^3/uL (0.0-0.1) 01/15/22 22: Nucleated RBC % (auto) 0 % 01/15/22 22: Nucleated RBCs # 0.0 /100WBC 01/15/22 22:22 Sodium 139 mmol/L (136-145) 01/15/22 22:22 Potassium 3.7 mmol/L (3.5-5.1) 01/15/22 22:22 Chloride 101 mmol/L (98-107) 01/15/22 22:22 Carbon Dioxide 27 mmol/L (22-29) 01/15/22 22:22 Anion Gap 14.7 (5-19) 01/15/22 22:22 BUN 8 mg/dL (6-20) 01/15/22 22:22 Creatinine 1.0 mg/dL (0.5-0.9) H 01/15/22 22:22 GFR Calculation 66.5 mL/min (90-130) L 01/15/22 22:22 Glucose 104 mg/dL (65-115) 01/15/22 22:22 Calculated Osmolality 287 mOsm/kg (285-295) 01/15/22 22:22 Calcium 9.8 mg/dL (8.5-10.5) 01/15/22 22:22 Total Bilirubin 0.5 mg/dL (0.15-1.2) 01/15/22 22:22 AST 17 U/L (0-32) 01/15/22 22:22 ALT 28 U/L (0-33) 01/15/22 22:22 Alkaline Phosphatase 121 U/L (35-105) H 01/15/22 22:22 Total Protein 7.8 g/dL (6.6-8.7) 01/15/22 22:22 Albumin 4.6 g/dL (3.5-5.2) 01/15/22 22: Globulin 3.2 g/dL (1.3-4.6) 01/15/22 22:22 Lipase 32 U/L (13-60) 01/15/22 22:22 Urine Color Dark yellow (Yellow) 01/15/22 22:22 Urine Appearance Sl hazy (CLEAR) A 01/15/22 22: Urine pH >=9.0 (5-7) A 01/15/22 22:22 Ur Specific Camp 1.015 (1.005-1.030) 01/15/22 22: Urine Protein 2+ (Negative) A 01/15/22 22:22 Urine Glucose (UA) Negative (Normal) 01/15/22 22:22 Urine Ketones Negative (Negative) 01/15/22 22:22 Urine Blood Trace-intact (Negative) A 01/15/22 22: Urine Nitrate Negative 01/15/22 22: Urine Bilirubin Small (Negative) 01/15/22 22:22 Urine Urobilinogen 1.0 mg/dL (Negative) 01/15/22 22: Ur Leukocyte Esterase Negative (Negative) 01/15/22 22:22 Urine RBC 5-10 /hpf (0-2) H 01/15/22 22:22 Urine WBC 15-25 /hpf (0-5) H 01/15/22 22:22 Ur Squamous Epith Cells 15-25 /hpf (0-5) H 01/15/22 22:22 Amorphous Sediment Not Reportable 01/15/22 22:22 Urine Bacteria 3+ /hpf (NONE) H 01/15/22 22:22 Urine Mucus 1+ /hpf 01/15/22 22:22 Nasal Influ A H1 2008 PCR Not detected (NOT DETECT) 01/15/22 22:22 Coronavirus 229E (PCR) Not detected (NOT DETECT) 01/15/22 22:22 Influenza A (H1) PCR Not detected (NOT DETECT) 01/15/22 22:22 Influenza A (H3) PCR Not detected (NOT DETECT) 01/15/22 22:22 Influenza Type A (PCR) Not detected (NOT DETECT) 01/15/22 22:22 Influenza Type B (PCR) Not detected (NOT DETECT) 01/15/22 22:22 SARS-CoV-2 (PCR) Not detected (NOT DETECT) 01/15/22 22:22 Discharge Plan Discharge Patient Disposition: Home Clinical Impression: Headache, Nausea & vomiting, UTI (urinary tract infection) Condition: Stable Prescriptions: New hydrocodone-acetaminophen 5-325 mg tablet 1 tab PO Q8H PRN (Reason: pain) Qty: 7 0RF ondansetron 4 mg film 4 mg PO DAILY PRN (Reason: nausea and vomiting) Qty: 10 0RF cephalexin 500 mg capsule 500 mg PO Q6H Qty: 28 0RF No Action Kyleena 17.5 mcg/24 hrs (5 yrs) 19.5 mg intrauterine device 1 device intrauterine .every 5 years Qty: 1 0RF acetaminophen [Tylenol] 325 mg tablet 325 mg PO QID PRN aripiprazole 10 mg tablet 10 mg PO DAILY Qty: 30 2RF Rx Instructions: Take one tablet by mouth once a day duloxetine 60 mg capsule,delayed release(DR/EC) 60 mg PO DAILY Qty: 30 2RF Rx Instructions: Take one capsule by mouth every morning trazodone 100 mg tablet 100 mg PO DAILY PRN (Reason: insomnia) Qty: 30 2RF Rx Instructions: Take 1/2 to 1 tablet at bedtime, if needed for insomnia hydroxyzine pamoate 50 mg capsule 50 mg PO BID PRN (Reason: anxiety or sleep) Qty: 60 2RF Rx Instructions: Take one capsule twice daily, if needed for anxiety or sleep nitrofurantoin monohyd/m-cryst [Macrobid] 100 mg capsule 100 mg PO BID 5 Days Qty: 10 0RF Rx Instructions: must administer with a meal/food metoprolol succinate 50 mg tablet extended release 24 hr 50 mg PO DAILY Qty: 90 2RF Discharge Orders: Discharge ED (Routine); Ordered 01/16/22 Ordered By: Jim Verdugo Referrals: OTIS DYER JR, MD [Primary Care Provider] - Discharge Diet: Advance as tolerated Discharge Activity: Increase activity as tolerated Patient Instructions: Acute Headache (ED) Activity Restrictions/Additional Instructions: Please come back to the emergency room you have any fever chills, worsening headache, focal weakness, nausea/vomiting, inability to perform daily activity, or any new concerning complaints. Coding Level of Care Code ED Cigar Brander for Chg Fwd Exam Comprehensive
[2022-01-15] MEDS: acetaminophen 500 mg Tablet 1000 MG PO (22:20)
[2022-01-15] MEDS: metoclopramide 5 mg/mL SDV 2 mL 10 MG IVP (22:21)
[2022-01-15] MEDS: diphenhydrAMINE 50 mg/mL SDV 1mL IVP (22:21)
[2022-01-15] MEDS: magnesium sulfate premix 2 GM/50 ML PIGGYBACK IV (22:21)
[2022-01-15] MEDS: lactated ringers 1,000 ML 999 ML IV ×2 (22:23→23:19)
[2022-01-15 22:37] VITALS: BP 131/71; PULSE 90; RESP 16; O2SAT 96
[2022-01-15 22:44] LABS: Basophils # 0.1 10^3/uL (0.0-0.1); Basophils % 0.6 %; Eosinophils # 0.1 10^3/uL (0.0-0.8); Eosinophils % 0.6 %; Hematocrit 43.9 % (37.0-47.0); Hemoglobin 14.2 g/dL (11.5-15.3); Lymphocytes # 2.1 10^3/uL (0.8-4.8); Lymphocytes % 19.9 %; Mean Corpuscular HGB Conc 32.3 g/dL (30.0-36.0); Mean Corpuscular Volume 80.3 fl (81-99); Mean Platelet Volume 9.8 fL (7.4-10.4); Monocytes # 0.5 10^3/uL (0.2-0.9); Monocytes % 4.4 %; Neutrophils # 7.85 10^3/uL (1.8-7.7); Neutrophils % 74.2 %; Nucleated Red Blood Cells % 0 %; Platelet Count 356 10^3/cmm (130-400); Red Blood Count 5.47 10^6/uL (4.1-5.3); Red Cell Distribution Width 12.7 % (12.1-15.1); White Blood Count 10.6 10^3/uL (4.0-10.0)
[2022-01-15 22:50] LABS: Bilirubin Urine Small (Negative); Blood Urine Trace-intact (Negative); Glucose Urine UA Negative (Normal); Ketones Urine Negative (Negative); Leukocyte Esterase Urine Negative (Negative); Nitrate Urine Negative; Protein Urine 2+ (Negative); Specific Gravity, Urine 1.015 (1.005-1.030); Urine Color Dark yellow (Yellow)
[2022-01-15 23:03] VITALS: BP 146/70; PULSE 88; RESP 16; O2SAT 95
[2022-01-15 23:03] LABS: Add Urine Culture? No; Add Urine Microscopic? YES; Bacteria Urine 3+ /hpf; Mucus Urine 1+ /hpf; Squamous Epithelial Cell Urine 15-25 /hpf (0-5); Urine Appearance SL Hazy (CLEAR); WBC Urine 15-25 /hpf (0-5); pH Urine >=9.0 (5-7)
[2022-01-15] MEDS: ondansetron 2 mg/ML SDV 2 mL 4 MG IVP (23:03)
[2022-01-15 23:05] LABS: Alanine Aminotransferase 28 U/L (0-33); Albumin Level 4.6 g/dL (3.5-5.2); Alkaline Phosphatase 121 U/L (35-105); Anion Gap 14.7 (5-19); Aspartate Amino Transferase 17 U/L (0-32); Blood Urea Nitrogen 8 mg/dL (6-20); Calcium 9.8 mg/dL (8.5-10.5); Carbon Dioxide 27 mmol/L (22-29); Chloride 101 mmol/L (98-107); Globulin 3.2 g/dL (1.3-4.6); Glomerular Filtration Rate 66.5 mL/min (90-130); Glucose 104 mg/dL (65-115); Lipase 32 U/L (13-60); Osmolality Calculated 287 mOsm/kg (285-295); Potassium 3.7 mmol/L (3.5-5.1); Sodium 139 mmol/L (136-145); Total Bilirubin 0.5 mg/dL (0.15-1.2); Total Protein 7.8 g/dL (6.6-8.7)
--- NOTE | 2022-01-15 23:11 | PC.NURSE ---
Dr. Martin to this nurse. States to give pt 4mg Morphine. He is stepping away and requested I give the med. This RN will place verbal order.
[2022-01-15 23:19] VITALS: RESP 16
[2022-01-15] MEDS: morphine 4 mg/mL SDV 1 mL IVP (23:19)
[2022-01-16] MEDS: cefTRIAXone 1,000 MG in sodium chloride 0.9% (plus) 50 ML 100 MG IV (00:03)
[2022-01-16 00:04] VITALS: RESP 16
[2022-01-16] MEDS: ondansetron 2 mg/ML SDV 2 mL 4 MG IVP (00:04)
[2022-01-16] MEDS: ketorolac 30 mg/mL INJ 15 MG IVP (00:04)
[2022-01-16] MEDS: fentaNYL 50 mcg/mL INJ 2mL 100 MCG IVP (00:04)
[2022-01-16 00:27] LABS: Adenovirus Not Detected (NOT DETECT); Chlamydia Pneumoniae Not Detected (NOT DETECT); Coronavirus 229E,HKU1,NL63,OC4 Not Detected (NOT DETECT); Human Metapneumovirus Not Detected (NOT DETECT); Human Rhinovirus/Enterovirus Not Detected (NOT DETECT); Influenza A Not Detected (NOT DETECT); Influenza A H1 Not Detected (NOT DETECT); Influenza A H1-2009 Not Detected (NOT DETECT); Influenza A H3 Not Detected (NOT DETECT); Influenza B Not Detected (NOT DETECT); Mycoplasma Pneumoniae Not Detected (NOT DETECT); Parainfluenza Virus Type 1 Not Detected (NOT DETECT); Parainfluenza Virus Type 2 Not Detected (NOT DETECT); Parainfluenza Virus Type 3 Not Detected (NOT DETECT); Parainfluenza Virus Type 4 Not Detected (NOT DETECT); Respiratory Syncytial Virus A Not Detected (NOT DETECT); Respiratory Syncytial Virus B Not Detected (NOT DETECT); SARS-COV-2 Not Detected (NOT DETECT)
[2022-01-16 00:39] LABS: Influenza A Not Detected (NOT DETECT); Influenza A H1 Not Detected (NOT DETECT); Influenza A H1-2009 Not Detected (NOT DETECT); Influenza A H3 Not Detected (NOT DETECT); Influenza B Not Detected (NOT DETECT); Results from Genmark
[2022-01-16 00:40] VITALS: BP 117/50; PULSE 78; RESP 14; O2SAT 94
[2022-01-16 02:09] VITALS: BP 112/57; PULSE 79; RESP 14; O2SAT 93
[2022-01-16 03:47] VITALS: BP 106/52; PULSE 75; RESP 16; O2SAT 93
== END 2022-01-16 03:51 | disposition home or self-care (01) ==
PROVIDERS: Emergency Medicine; Emergency Provider Emergency Medicine; PCP Internal Medicine Pulmonary Disease
DX: N39.0 Urinary tract infection, site not specified (principal); R11.2 Nausea with vomiting, unspecified; R51.9 Headache, unspecified
CPT/HCPCS: 80053; 81000; 81001; 83690; 85025; 87426; 87631; 87635; 96365; 96367; 96375; 96376; 99284; J0696; J1200; J1885; J2270; J2405; J2765; J3010; J3475

== ENCOUNTER 2022-02-08 13:56 | Outpatient (CLI) | payer OTHER, SELFPAY ==
[2022-02-08 15:05] LABS: Blood Urine 2+ (Negative); Glucose Urine UA Norm (Normal); Ketones Urine 1+ (Negative); Nitrate Urine Negative (Negative); Protein Urine Neg (Negative); Urine Appearance SL Hazy (CLEAR); Urine Color Yellow (Yellow); pH Urine 5 (5-7)
[2022-02-08 15:06] LABS: Add Urine Culture? Yes; Add Urine Microscopic? YES; Bacteria Urine 2+ /hpf; Bilirubin Urine Neg (Negative); Leukocyte Esterase Urine Trace (Negative); Mucus Urine 2+ /hpf; RBC Urine RARE /hpf (0-2); Urobilinogen Urine Neg (Negative); WBC Urine 0-4 /hpf (0-5)
[2022-02-08 15:28] LABS: Rapid Plasma Reagin Syphilis Nonreactive (Nonreactive)
[2022-02-08 16:10] LABS: HIV 1 & 2 Antibody Non-Reactive (Non-Reactiv); HIV 1 & 2 Antigen Non-Reactive (Non-Reactiv)
== END 2022-02-08 13:57 | disposition home or self-care (01) ==
LOC: LAB 13:59
PROVIDERS: PCP Family Medicine; Visit Provider Family Medicine
DX: Z11.3 Encounter for screening for infections with a predominantly sexual mode of transmission (principal); R10.31 Right lower quadrant pain
CPT/HCPCS: 36415; 81001; 86592; 87806

== ENCOUNTER → 2022-04-05 10:50 | Outpatient (BNVA) | payer OTHER, SELFPAY | PROVIDERS: PCP Family Medicine; Visit Provider Nurse Practitioner Psychiatric/Mental Health | DX: Z79.899 Other long term (current) drug therapy (principal) | CPT/HCPCS: 80061; 83036 ==

== ENCOUNTER → 2022-04-06 10:11 | Outpatient (BNVA) | payer OTHER, SELFPAY | PROVIDERS: PCP Family Medicine; Visit Provider Nurse Practitioner Women's Health | DX: Z30.9 Encounter for contraceptive management, unspecified (principal) | CPT/HCPCS: 81025 ==

== ENCOUNTER 2022-04-30 16:16 | Outpatient (CLI) | payer OTHER, SELFPAY ==
--- NOTE | 2022-04-30 16:00 | CT_ITS ---
WS: [id number] CT HEAD TECHNIQUE: Noncontrast CT of the head obtained from the skullbase to the vertex. CLINICAL INFORMATION: retinal artery occlusion, headaches COMPARISON: None. DLP: 1069.[address] scans at [facility] use at least one of these dose optimization techniques: automated e xposure control; mA and/or kV adjustment per patient size (includes targeted exams where dose is matc hed to clinical indication); or iterative reconstruction. FINDINGS: No evidence of intracranial hemorrhage or mass effect. Ventricular system and basal cisterns are ely nt. No extra-axial fluid collections. No evidence of mass or mass effect. Normal campos-white different iation. Paranasal sinuses and mastoid air cells are well aerated. .Normal visualized soft tissues. CT/CT head wo con* [id number] IMPRESSION: 1. No evidence of intracranial hemorrhage or mass effect. 2. No acute intracranial findings.
== END 2022-04-30 16:17 | disposition home or self-care (01) ==
LOC: RAD 16:17
PROVIDERS: PCP Family Medicine; Visit Provider Family Medicine
DX: H34.9 Unspecified retinal vascular occlusion (principal); R51.9 Headache, unspecified
CPT/HCPCS: 70450

== ENCOUNTER 2022-07-14 09:55 | Outpatient (CLI) | payer OTHER, SELFPAY ==
[2022-07-14 10:24] LABS: Anion Gap 11.9 (5-19); Blood Urea Nitrogen 12 mg/dL (6-20); Carbon Dioxide 24 mmol/L (22-29); Chloride 107 mmol/L (98-107); Glomerular Filtration Rate 85.4 mL/min (90-130); Glucose 91 mg/dL (65-115); Osmolality Calculated 287 mOsm/kg (285-295); Potassium 3.9 mmol/L (3.5-5.1); Sodium 139 mmol/L (136-145)
== END 2022-07-14 09:56 | disposition home or self-care (01) ==
PROVIDERS: PCP Family Medicine; Visit Provider Nurse Practitioner Family
DX: M79.89 Other specified soft tissue disorders (principal)
CPT/HCPCS: 36415; 80048

== ENCOUNTER 2022-12-24 15:37 | Outpatient (CLI) | payer OTHER, SELFPAY ==
[2022-12-24 16:19] LABS: SARS Covid-2 Antigen negative (Negative)
== END 2022-12-24 15:38 | disposition home or self-care (01) ==
PROVIDERS: PCP Family Medicine; Visit Provider Family Medicine
DX: Z20.822 Contact with and (suspected) exposure to COVID-19 (principal)
CPT/HCPCS: 87426

== ENCOUNTER 2023-01-13 08:42 | Outpatient (CLI) | payer OTHER, SELFPAY ==
--- NOTE | 2023-01-13 08:53 | XR_ITS ---
WS: [id number] Left shoulder, 3 views, 01/13/2023 Clinical Data: chronic left shoulder pain Comparison: Left shoulder, 12/27/2017. Findings: No fractures or dislocations are seen. The AC joint is normal. The adjacent left clavicle, left scapu la and ribs are normal. The soft tissues are unremarkable. Impression: Negative left shoulder.
== END 2023-01-13 08:43 | disposition home or self-care (01) ==
PROVIDERS: PCP Family Medicine; Visit Provider Family Medicine
DX: M25.512 Pain in left shoulder (principal)
CPT/HCPCS: 73030

== ENCOUNTER → 2023-02-14 08:21 | Outpatient (BNVA) | payer OTHER, SELFPAY | PROVIDERS: PCP Family Medicine; Visit Provider Family Medicine | DX: R39.9 Unspecified symptoms and signs involving the genitourinary system (principal) | CPT/HCPCS: 87426 ==